=== PATIENT | female | born 1975 | race Hispanic/Latino ===

== ENCOUNTER 2017-09-09 16:49 | Emergency (ER) | payer MEDICARE, MEDICAID ==
[2017-09-09] MEDS ORDERED: Lidocaine 2% PF 10 ML AMP (For Epidural Use) ONE (17:01)
[2017-09-09] MEDS ORDERED: Lidocaine 1% w/Epinephrine 1:200K 30 ML VIAL ONE (18:04)
== END 2017-09-09 18:16 | disposition home or self-care (01) ==
LOC: ERS 16:49
DX: S61.203A Unspecified open wound of left middle finger without damage to nail, initial encounter (principal); I12.0 Hypertensive chronic kidney disease with stage 5 chronic kidney disease or end stage renal disease; N18.6 End stage renal disease; F32.9 Major depressive disorder, single episode, unspecified; F17.210 Nicotine dependence, cigarettes, uncomplicated; Z79.82 Long term (current) use of aspirin; Z79.52 Long term (current) use of systemic steroids; Z79.899 Other long term (current) drug therapy; W26.0XXA Contact with knife, initial encounter
CPT/HCPCS: 64450; J2001

== ENCOUNTER 2017-11-18 15:49 | Emergency (ER) | payer MEDICARE, MEDICAID ==
[2017-11-18 16:46] LABS: #Eosinphils 0.1 thou/uL (0.0-0.7); #Monocytes 0.4 thou/uL (0.11-0.59); #Neutrophils 5.3 thou/uL (1.40-6.50); %Basophils 0.2 % (0.0-1.0); %Lymphocytes 14.7 % (21.0-51.0); %Monocytes 5.9 % (0.0-10.0); Hematocrit 40.2 % (36.0-47.0); Mean Platelet Volume 7.3 fL (7.4-10.4); Red Blood Cell (RBC) Count 4.34 mill/uL (4.20-5.40); White Blood Cell (WBC) Count 6.8 thou/uL (4.8-10.8)
[2017-11-18 17:10] LABS: ALT (SGPT) 28 U/L (8-55); AST (SGOT) 26 U/L (5-34); Alkaline Phosphatase 161 U/L (40-150); Anion Gap 14 mmol/L (10-20); BUN (Urea Nitrogen) 15 mg/dL (7.0-18.7); Bilirubin, Total 0.2 mg/dL (0.2-1.2); Calc. Creatinine Clearance 0 mL/min (70-130); Calcium 9.9 mg/dL (7.8-10.44); Carbon Dioxide 23 mmol/L (22-29); Chloride 103 mmol/L (98-107); Estimated GFR-MDRD 65; Globulin 3.8 g/dL (2.4-3.5); Protein, Total 7.9 g/dL (6.0-8.3)
[2017-11-18] MEDS ORDERED: Ketorolac Tromethamine 30 MG/ML VIAL ONE (18:31)
[2017-11-18] MEDS ORDERED: Metoclopramide HCl 10 MG/2 ML VIAL ONE (18:31)
[2017-11-18] MEDS ORDERED: diphenhydrAMINE 50 MG/ML VIAL ONE (18:31)
[2017-11-18] MEDS ORDERED: Dexamethasone 4 mg/ml Vial ONE (19:04)
[2017-11-18 19:40] LABS: Bilirubin Negative (Negative); Blood, Urine Large (Negative); Glucose, Urine (Dipstick) Negative (Negative); Ketone, Urine Negative (Negative); Nitrite Negative (Negative); Protein, Urine (Dipstick) Negative (Neg-Trace); Urobilinogen 0.2 mg/dL (0.2-1.0)
[2017-11-18 19:43] LABS: Bacteria/HPF None Seen HPF (None Seen); Hyaline Casts/LPF 0-3 HYALINE CAST LPF (0-3 Hyaline); Squamous Epithelial 0-3 HPF (0-3); WBC/HPF None Seen HPF (0-3)
[2017-11-18 19:58] LABS: Yeast-All Forms None Seen HPF (None Seen)
--- NOTE | 2017-11-18 20:05 | RAD ---
PORTABLE CHEST 11/18/17 PROVIDED CLINICAL HISTORY: Cough. FINDINGS: Comparison 07/27/17. The cardiac silhouette appears enlarged which may be at least partially on the basis of portable tech nique. No focal consolidation, pleural fluid or pneumothorax apparent. IMPRESSION: No evidence for an acute cardiopulmonary process. POS: [facility]
== END 2017-11-18 21:28 | disposition home or self-care (01) ==
LOC: ERS 15:49
DX: G43.909 Migraine, unspecified, not intractable, without status migrainosus (principal); J11.1 Influenza due to unidentified influenza virus with other respiratory manifestations; I12.0 Hypertensive chronic kidney disease with stage 5 chronic kidney disease or end stage renal disease; N18.6 End stage renal disease; F32.9 Major depressive disorder, single episode, unspecified; F17.210 Nicotine dependence, cigarettes, uncomplicated; Z94.0 Kidney transplant status; Z79.82 Long term (current) use of aspirin; Z79.52 Long term (current) use of systemic steroids; Z79.899 Other long term (current) drug therapy
CPT/HCPCS: 36415; 71010; 80053; 81003; 81015; 85025; 87040; 87077; 87086; 96361; 96374; 96375; 99406; J1100; J1200; J1885; J2765

== ENCOUNTER 2018-03-15 14:44 | Outpatient (CLI) | payer MEDICARE, MEDICAID | END 2018-03-15 14:45 | disposition home or self-care (01) | LOC: BICMAMMO 14:44 | PROVIDERS: ATTEND Internal Medicine Nephrology | DX: M81.0 Age-related osteoporosis without current pathological fracture (principal); M85.859 Other specified disorders of bone density and structure, unspecified thigh | CPT/HCPCS: 77080 ==

== ENCOUNTER 2018-04-09 14:44 | Emergency (ER) | payer MEDICARE, MEDICAID ==
--- NOTE | 2018-04-09 16:27 | RAD ---
PA AND LATERAL CHEST X-RAY: 04/09/18 HISTORY: Chest pain. COMPARISON: 11/18/17. FINDINGS: The cardiac silhouette and pulmonary vasculature are within normal limits. Lungs remain clear. There has been no interval change when compared to the prior exam. IMPRESSION: No acute cardiopulmonary process. POS: [facility]
== END 2018-04-09 17:00 | disposition home or self-care (01) ==
LOC: ERS 14:44
DX: M54.12 Radiculopathy, cervical region (principal); I11.0 Hypertensive heart disease with heart failure; N18.6 End stage renal disease; F17.210 Nicotine dependence, cigarettes, uncomplicated; F32.9 Major depressive disorder, single episode, unspecified
CPT/HCPCS: 71046

== ENCOUNTER 2018-05-09 03:29 | Emergency (ER) | payer MEDICAID, MEDICARE ==
[2018-05-09] MEDS ORDERED: Ondansetron ODT 4 MG TAB ONE (03:42)
[2018-05-09] MEDS ORDERED: Metoclopramide HCl 10 MG/2 ML VIAL ONE (04:29)
[2018-05-09] MEDS ORDERED: diphenhydrAMINE 50 MG/ML VIAL ONE (04:29)
[2018-05-09 04:49] LABS: Hemoglobin 13.2 g/dL (12.0-16.0); Mean Corpuscular HGB CONC 33.2 g/dL (32.0-36.0); Mean Corpuscular Hemoglobin 30.2 pg (27.0-31.0); Mean Corpuscular Volume 90.9 fl (81.0-99.0); Mean Platelet Volume 7.1 fL (7.4-10.4); Platelet Count 322 thou/uL (130-400); RBC Distribution Width 12.8 % (11.5-14.5); Red Blood Cell (RBC) Count 4.37 mill/uL (4.20-5.40); White Blood Cell (WBC) Count 11.3 thou/uL (4.8-10.8)
[2018-05-09 05:12] LABS: Band 1 % (5-11); Eosinophils 1 % (0-10); Lymphocytes 7 % (21-51); MDiff Complete? YES; Monocytes 4 % (0-10); Neutrophil 87 % (42-75)
[2018-05-09 05:14] LABS: ALT (SGPT) 14 U/L (8-55); AST (SGOT) 12 U/L (5-34); Albumin 3.9 g/dL (3.5-5.0); Alkaline Phosphatase 149 U/L (40-150); Anion Gap 13 mmol/L (10-20); BUN (Urea Nitrogen) 18 mg/dL (7.0-18.7); Bilirubin, Total 0.4 mg/dL (0.2-1.2); Calc. Creatinine Clearance 0 mL/min (70-130); Calcium 8.7 mg/dL (7.8-10.44); Carbon Dioxide 23 mmol/L (22-29); Chloride 103 mmol/L (98-107); Estimated GFR-MDRD 75; Globulin 3.2 g/dL (2.4-3.5); Glucose 152 mg/dL (70-105); Potassium 3.8 mmol/L (3.5-5.1); Protein, Total 7.1 g/dL (6.0-8.3); Sodium 135 mmol/L (136-145)
--- NOTE | 2018-05-09 08:34 | CT ---
PRELIMINARY REPORT/[facility]/EMERGENCY AFTER HOURS PROCEDURE: EXAM: CT Head Without Intravenous Contrast EXAM DATE/TIME: 05/09/2018 4:33 AM CLINICAL HISTORY: 42 years old, female; Pain; Headache; Patient HX: PT had stroke in february, possible seizure like activ ity tonight. PT was sitting and slumped down on the couch. TECHNIQUE: Axial computed tomography images of the head/brain without intravenous contrast. COMPARISON: No relevant prior studies available. FINDINGS: Brain: Normal. No hemorrhage. No significant white matter disease. No edema. Ventricles: Normal. No ventriculomegaly. Bones/joints: Normal. No acute fracture. Sinuses: Normal as visualized. No acute sinusitis. Mastoid air cells: Normal as visualized. No mastoid effusion. Soft tissues: Normal. IMPRESSION: No acute findings. Thank you for allowing us to participate in the care of your patient. Dictated and Authenticated by: Sheldon Crabtree MD 05/09/2018 4:53 AM Central Time ([place] & [place]) FINAL REPORT CT HEAD NONCONTRAST: DATE: 05/09/18. TIME: Performed on an emergency basis at 0434 hours. HISTORY: Seizure. FINDINGS: Findings agree with the preliminary report by Dr. Crabtree from [facility]. No acute intracran ial abnormalities are demonstrated on noncontrast CT head. POS: [facility]
== END 2018-05-09 06:11 | disposition home or self-care (01) ==
LOC: ERS 03:29
DX: G43.909 Migraine, unspecified, not intractable, without status migrainosus (principal); I12.0 Hypertensive chronic kidney disease with stage 5 chronic kidney disease or end stage renal disease; N18.6 End stage renal disease; F32.9 Major depressive disorder, single episode, unspecified; Z87.891 Personal history of nicotine dependence; F17.210 Nicotine dependence, cigarettes, uncomplicated
CPT/HCPCS: 36415; 70450; 80053; 85025; 85652; 96365; 96375; J1200; J2765; Q0162

== ENCOUNTER 2018-05-11 20:26 | Emergency (ER) | payer MEDICAID, MEDICARE ==
[2018-05-11 20:58] LABS: Bilirubin Negative (Negative); Blood, Urine Small (Negative); Clarity CLOUDY (Clear); Glucose, Urine (Dipstick) Negative (Negative); Leukocyte Small (Negative); Nitrite Negative (Negative); Protein, Urine (Dipstick) Negative (Neg-Trace); Specific Gravity, Urine 1.013 (1.002-1.036); Urobilinogen 0.2 mg/dL (0.2-1.0)
[2018-05-11 21:01] LABS: Bacteria/HPF 1+ HPF (None Seen); Hyaline Casts/LPF 0-3 HYALINE CAST LPF (0-3 Hyaline); Pathc Cast-AUWi Flag 0.43 (0-2.49); RBC/HPF 0-3 HPF (0-3); WBC/HPF 21-50 HPF (0-3)
[2018-05-11] MEDS ORDERED: Dicyclomine 20 MG TAB ONE (21:15)
[2018-05-11 21:22] LABS: #Eosinphils 0.1 thou/uL (0.0-0.7); #Lymphocytes 1.9 thou/uL (1.20-3.40); #Monocytes 0.4 thou/uL (0.11-0.59); #Neutrophils 4.3 thou/uL (1.40-6.50); %Basophils 0.1 % (0.0-1.0); %Eosinophils 1.2 % (0.0-10.0); %Lymphocytes 28.3 % (21.0-51.0); %Monocytes 6.2 % (0.0-10.0); %Neutrophils 64.2 % (42.0-75.0); Hemoglobin 11.8 g/dL (12.0-16.0); Mean Corpuscular HGB CONC 34.6 g/dL (32.0-36.0); Mean Corpuscular Volume 89.7 fl (81.0-99.0); Mean Platelet Volume 7.2 fL (7.4-10.4); Platelet Count 295 thou/uL (130-400); RBC Distribution Width 12.5 % (11.5-14.5); White Blood Cell (WBC) Count 6.6 thou/uL (4.8-10.8)
[2018-05-11] MEDS ORDERED: Nitrofurantoin Macrocrystal 50 MG CAP PO SCH (21:30)
[2018-05-11 21:37] LABS: ALT (SGPT) 17 U/L (8-55); AST (SGOT) 14 U/L (5-34); Albumin 3.7 g/dL (3.5-5.0); Alkaline Phosphatase 189 U/L (40-150); Anion Gap 14 mmol/L (10-20); BUN (Urea Nitrogen) 17 mg/dL (7.0-18.7); Bilirubin, Total 0.2 mg/dL (0.2-1.2); Calc. Creatinine Clearance 0 mL/min (70-130); Calcium 9.5 mg/dL (7.8-10.44); Carbon Dioxide 22 mmol/L (22-29); Chloride 104 mmol/L (98-107); Estimated GFR-MDRD 74; Glucose 203 mg/dL (70-105); Lipase 18 U/L (8-78); Potassium 4.1 mmol/L (3.5-5.1); Protein, Total 6.7 g/dL (6.0-8.3); Sodium 136 mmol/L (136-145)
[2018-05-12] MEDS ORDERED: Ciprofloxacin 500 MG TAB ONE (01:20)
--- NOTE | 2018-05-12 09:15 | CT ---
PRELIMINARY REPORT/[facility]/EMERGENTY AFTER-HOURS PROCEDURE CT Abdomen and Pelvis Without Intravenous Contrast CLINICAL HISTORY: 42 years old, female; Pain; Abdominal pain; Generalized; Patient HX: F42 presents to ed C/O rlq abd p ain that began today after 2 days of n/v/d. Pt reports kidney transplant in 2010 for unknown heredity issue. Pt denies diarrhea. Pt reports constipation. Pt reports having last bm in the ed during visit . Pt still has her appendix. During last ed visit pt was given zofran for n/v. Pt denies n/v. ; Addit ional info: Oral contrast only TECHNIQUE: Axial computed tomography images of the abdomen and pelvis without intravenous contrast. Coronal refo rmatted images were created and reviewed. COMPARISON: No relevant prior studies available. FINDINGS: Lung bases: Minimal right middle lobe and lingular atelectasis and/or scarring. ABDOMEN: Liver: Hepatic steatosis. Gallbladder and bile ducts: Normal. Pancreas: Normal. Spleen: Normal. Adrenals: Normal. Kidneys and ureters: Severe bilateral [place] renal atrophy. Right lower quadrant/iliac fossa renal al lograft, without evidence of acute complications. Stomach and bowel: Normal. PELVIS: Appendix: Appendix is normal. Bladder: Normal. Reproductive: 2.9 cm cystic structure within the right adnexa, likely right ovarian cyst. ABDOMEN and PELVIS: Intraperitoneal space: Normal. No free air. No significant fluid collection. Bones/joints: No acute fracture. No dislocation. Soft tissues: Normal. Vasculature: Atherosclerotic disease of the abdominal aorta and iliac arteries. Phleboliths within th e pelvis. Lymph nodes: Normal. Tubes, lines and devices: Intrauterine device in place. IMPRESSION: 1. No acute findings. 2. Non-acute findings are described above. Thank you for allowing us to participate in the care of your patient. Dictated and Authenticated by: Alessandro Hollis MD 05/12/2018 1:11 AM Central Time ([place] & [place]) FINAL REPORT EMERGENT AFTER HOURS CT OF ABDOMEN AND PELVIS PERFORMED WIHTOUT CONTRAST ENHANCEMENT: HISTORY: Generalized abdominal pain. Right lower quadrant pain that began today. History of a kidney transpl ant. COMPARISON: 07/27/17 CT examination. FINDINGS: The lung bases show some minimal scarring in the lingula and middle lobe. Fatty changes of the liver are noted, liver measures approximately 16 cm in length. The spleen is wi thin normal limits. Pancreas and gallbladder regions are unremarkable. Right and left adrenal glands are normal in appearance. Both kidneys were severely atrophic. There is no significant periaortic adenopathy. There are small nonspecific mesenteric lymph nodes, this is a fairly similar appearance to what was seen on the previous exam. CT OF PELVIS PERFORMED WITHOUT CONTRAST ENHANCEMENT: The appendix is normal. A right-sided renal transplant is present. No signs of obstruction. IUD is in place within the uterus. There is a right ovarian cyst present. It measures slightly greater th an 2.2 x 2.9 cm. IMPRESSION: 1. No acute abnormalities of the abdomen or pelvis. 2. Normal appendix. 3. Approximately 2.9 cm right ovarian cyst. 4. Fatty changes of the liver. 5. Right renal transplant. 6. This report is in agreement with the temporary report issued by [facility]. POS: [facility]
== END 2018-05-12 01:36 | disposition home or self-care (01) ==
LOC: ERS 20:26
DX: N39.0 Urinary tract infection, site not specified (principal); I12.0 Hypertensive chronic kidney disease with stage 5 chronic kidney disease or end stage renal disease; N18.6 End stage renal disease; F32.9 Major depressive disorder, single episode, unspecified; F17.210 Nicotine dependence, cigarettes, uncomplicated
CPT/HCPCS: 36415; 74176; 80053; 81003; 81015; 83690; 85025; 87086; 99406

== ENCOUNTER 2018-08-17 04:21 | Emergency (ER) | payer MEDICARE, MEDICAID ==
[2018-08-17] MEDS ORDERED: Metoclopramide HCl 10 MG/2 ML VIAL ONE (04:54)
[2018-08-17] MEDS ORDERED: Ketorolac Tromethamine 30 MG/ML VIAL ONE (04:54)
[2018-08-17] MEDS ORDERED: Dexamethasone 10 MG/ML VIAL ONE (04:54)
[2018-08-17 05:19] LABS: #Eosinphils 0.1 thou/uL (0.0-0.7); #Lymphocytes 1.6 thou/uL (1.20-3.40); #Monocytes 0.7 thou/uL (0.11-0.59); #Neutrophils 10.4 thou/uL (1.40-6.50); %Basophils 0.1 % (0.0-1.0); %Lymphocytes 12.3 % (21.0-51.0); %Monocytes 5.6 % (0.0-10.0); %Neutrophils 81.1 % (42.0-75.0); Hemoglobin 12.5 g/dL (12.0-16.0); Mean Corpuscular HGB CONC 33.9 g/dL (32.0-36.0); Mean Corpuscular Hemoglobin 31.3 pg (27.0-31.0); Mean Corpuscular Volume 92.3 fL (78.0-98.0); Mean Platelet Volume 7.5 fL (7.4-10.4); Platelet Count 336 thou/uL (130-400); RBC Distribution Width 12.9 % (11.5-14.5); Red Blood Cell (RBC) Count 3.99 mill/uL (4.20-5.40); White Blood Cell (WBC) Count 12.8 thou/uL (4.8-10.8)
[2018-08-17 05:42] LABS: Anion Gap 13 mmol/L (10-20); BUN (Urea Nitrogen) 12 mg/dL (7.0-18.7); Calc. Creatinine Clearance 0 mL/min (70-130); Calcium 9.5 mg/dL (7.8-10.44); Carbon Dioxide 23 mmol/L (22-29); Chloride 101 mmol/L (98-107); Estimated GFR-MDRD 75; Glucose 138 mg/dL (70-105); Potassium 3.4 mmol/L (3.5-5.1); Sodium 134 mmol/L (136-145)
== END 2018-08-17 06:25 | disposition home or self-care (01) ==
LOC: ERS 04:21
DX: R51 Headache (principal); Z71.6 Tobacco abuse counseling; I12.0 Hypertensive chronic kidney disease with stage 5 chronic kidney disease or end stage renal disease; N18.6 End stage renal disease; F32.9 Major depressive disorder, single episode, unspecified; F17.210 Nicotine dependence, cigarettes, uncomplicated
CPT/HCPCS: 80048; 85025; 96374; 99406; J1100; J1885; J2765

== ENCOUNTER 2018-08-22 18:51 | Emergency (ER) | payer MEDICARE, MEDICAID ==
[2018-08-22] MEDS ORDERED: HYDROcodone/Acetaminophen 5/325 mg Tablet ONE (19:31)
[2018-08-22] MEDS ORDERED: HYDROcodone/Acetaminophen 10/325 mg Tablet ONE (19:32)
--- NOTE | 2018-08-22 19:55 | RAD ---
RIGHT SHOULDER THREE VIEWS: HISTORY: Trauma to shoulder. FINDINGS: There are no signs of fracture or dislocation. IMPRESSION: Negative right shoulder. POS: [facility]
== END 2018-08-22 20:24 | disposition home or self-care (01) ==
LOC: ERS 18:51
DX: S46.911A Strain of unspecified muscle, fascia and tendon at shoulder and upper arm level, right arm, initial encounter (principal); S40.212A Abrasion of left shoulder, initial encounter; I12.0 Hypertensive chronic kidney disease with stage 5 chronic kidney disease or end stage renal disease; N18.6 End stage renal disease; F32.9 Major depressive disorder, single episode, unspecified; F17.210 Nicotine dependence, cigarettes, uncomplicated; Z79.82 Long term (current) use of aspirin; Z79.899 Other long term (current) drug therapy; Y04.0XXA Assault by unarmed brawl or fight, initial encounter

== ENCOUNTER 2018-08-31 22:47 | Observation (INO) | payer MEDICARE, MEDICAID ==
[2018-08-31 23:12] LABS: #Basophils 0.1 thou/uL (0.0-0.2); #Eosinphils 0.3 thou/uL (0.0-0.7); #Lymphocytes 2.9 thou/uL (1.20-3.40); #Monocytes 0.5 thou/uL (0.11-0.59); #Neutrophils 5.1 thou/uL (1.40-6.50); %Basophils 0.6 % (0.0-1.0); %Eosinophils 3.2 % (0.0-10.0); %Lymphocytes 32.8 % (21.0-51.0); %Monocytes 5.8 % (0.0-10.0); %Neutrophils 57.7 % (42.0-75.0); Hemoglobin 12.8 g/dL (12.0-16.0); Mean Corpuscular HGB CONC 33.5 g/dL (32.0-36.0); Mean Corpuscular Hemoglobin 30.7 pg (27.0-31.0); Mean Corpuscular Volume 91.6 fL (78.0-98.0); Mean Platelet Volume 7.2 fL (7.4-10.4); Platelet Count 400 thou/uL (130-400); RBC Distribution Width 12.9 % (11.5-14.5); Red Blood Cell (RBC) Count 4.18 mill/uL (4.20-5.40); White Blood Cell (WBC) Count 8.8 thou/uL (4.8-10.8)
--- NOTE | 2018-08-31 23:31 | RAD ---
FRONTAL VIEW CHEST: 08/31/18 INDICATION: Chest pain. COMPARISON: 11/18/17. There is no lobar consolidation, effusion or pneumothorax. The cardiac silhouette is prominent, stabl e. No significant interval change. No significant interval change. IMPRESSION: Stable chest. POS: [facility]
[2018-08-31 23:32] LABS: ALT (SGPT) 30 U/L (8-55); AST (SGOT) 24 U/L (5-34); Albumin 4.2 g/dL (3.5-5.0); Alkaline Phosphatase 189 U/L (40-150); Anion Gap 13 mmol/L (10-20); BUN (Urea Nitrogen) 16 mg/dL (7.0-18.7); Bilirubin, Total 0.3 mg/dL (0.2-1.2); CK (CPK) 38 U/L (29-168); Calc. Creatinine Clearance 0 mL/min (70-130); Calcium 10.1 mg/dL (7.8-10.44); Carbon Dioxide 25 mmol/L (22-29); Chloride 102 mmol/L (98-107); Estimated GFR-MDRD 59; Globulin 3.7 g/dL (2.4-3.5); Glucose 181 mg/dL (70-105); Potassium 3.6 mmol/L (3.5-5.1); Protein, Total 7.9 g/dL (6.0-8.3); Sodium 136 mmol/L (136-145)
[2018-08-31 23:34] LABS: CKMB 0.7 ng/mL (0-6.6); Troponin I Less than 0.010 ng/mL (< 0.028)
[2018-09-01] MEDS ORDERED: Acetaminophen 500 MG TAB ONE (01:17)
[2018-09-01 02:57] LABS: Troponin I Less than 0.010 ng/mL (< 0.028)
[2018-09-01 03:14] VITALS: BMI 32.3
[2018-09-01 05:39] LABS: Troponin I Less than 0.010 ng/mL (< 0.028)
[2018-09-01] MEDS: Mycophenolate ER 180 MG TAB PO SCH ×2 (08:35→18:55)
[2018-09-01] MEDS ORDERED: Tacrolimus 1 MG CAP PO SCH (09:00)
[2018-09-01] MEDS ORDERED: Simvastatin 5 MG TAB PO SCH (09:00)
[2018-09-01] MEDS ORDERED: Aspirin 325 MG TAB PO SCH (09:00)
[2018-09-01] MEDS ORDERED: DULoxetine 60 MG CAP PO SCH (09:00)
[2018-09-01] MEDS ORDERED: Carvedilol 25 MG TAB PO SCH (09:00)
[2018-09-01 12:23] VITALS: TEMP 98.1
--- NOTE | 2018-09-01 14:41 | NM ---
NUCLEAR MEDICINE CARDIAC STRESS TEST WITH EJECTION FRACTION: History: Chest pain, hypertension, smoker. Comparison: None. Technique: Stress and rest performed after the intravenous administration of technetium 99 M Sestamib i. FINDINGS: There is normal left ventricular uptake of radiotracer. No evidence for scar or ischemia. Wall motion is normal. The calculated ejection fraction is 58%. IMPRESSION: Normal Nuclear Medicine cardiac stress test and ejection fraction. POS: [facility]
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
[2018-09-01 15:44] VITALS: BP 123/59
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
--- NOTE | 2018-09-01 23:40 | DIS ---
DATE OF ADMISSION: 09/01/2018 DATE OF DISCHARGE: 09/01/2018 DISCHARGE DIAGNOSES: 1. Chest pain. 2. History of renal transplant. 3. Hypertension. HOSPITAL COURSE: The patient is a very pleasant 43-year-old female, [facility]. EKG did not show any acute abnormalities. Troponins x3 were negative. The patient underwent a stress test, which was negative. Given the fact that the patient continued to h ave heaviness on her chest, I did consult Cardiology. Motor Vehicle Field Representative said that she will need a cardiac catheterization; however, given her history of transplant, that would need to be followed up as an o utpatient. The patient's D-dimer was negative. She will be discharged home. She will follow up wit h her primary care doctor. The patient was seen earlier today. Please refer to H&P for physical exa mination. Her home medications were as of the following: She will continue her sertraline 100 mg daily, carved ilol 25 b.i.d., amlodipine 10 mg daily, tacrolimus 1 mg b.i.d., pravastatin 20 mg daily, Myfortic 360 b.i.d., and Cymbalta 20 mg daily.
--- NOTE | 2018-09-04 17:58 | EKG ---
Test Reason : Blood Pressure : / mmHG Vent. Rate : 104 BPM Atrial Rate : 104 BPM P-R Int : 132 ms QRS Dur : 082 ms QT Int : 366 ms P-R-T Axes : 062 -27 042 degrees QTc Int : 481 ms Sinus tachycardia Possible Left atrial enlargement Borderline ECG Confirmed by ADINA PAINTING ([id number]), medical transcription editor MARSHA VALDES ([id number]) on 09/04/2018 5:58:13 PM Referred By: Confirmed By:ADINA PAINTING
== END 2018-09-01 17:30 | disposition home or self-care (01) ==
LOC: ERS 22:47 → 2SW 09-01 00:51
PROVIDERS: ADMIT Internal Medicine; ATTEND Internal Medicine
DX: R07.89 Other chest pain (principal); I10 Essential (primary) hypertension; E78.5 Hyperlipidemia, unspecified; F17.210 Nicotine dependence, cigarettes, uncomplicated; Z94.0 Kidney transplant status; Z79.899 Other long term (current) drug therapy
CPT/HCPCS: 71045; 78452; 80053 ×2; 82550; 82553; 83690; 84484 ×3; 85025 ×2; 85379; 93005; 93017; 99285; A9500; G0378; 36415; J7507

== ENCOUNTER 2018-09-01 17:41 | Emergency (ER) | payer MEDICARE, MEDICAID ==
[2018-09-01 18:45] LABS: #Basophils 0.1 thou/uL (0.0-0.2); #Eosinphils 0.2 thou/uL (0.0-0.7); #Lymphocytes 2.2 thou/uL (1.20-3.40); #Monocytes 0.6 thou/uL (0.11-0.59); #Neutrophils 7.4 thou/uL (1.40-6.50); %Basophils 0.6 % (0.0-1.0); %Lymphocytes 20.8 % (21.0-51.0); %Monocytes 5.8 % (0.0-10.0); %Neutrophils 70.7 % (42.0-75.0); Hemoglobin 13.4 g/dL (12.0-16.0); Mean Corpuscular HGB CONC 32.9 g/dL (32.0-36.0); Mean Corpuscular Hemoglobin 30.7 pg (27.0-31.0); Mean Corpuscular Volume 93.3 fL (78.0-98.0); Mean Platelet Volume 7.6 fL (7.4-10.4); Platelet Count 399 thou/uL (130-400); Red Blood Cell (RBC) Count 4.37 mill/uL (4.20-5.40); White Blood Cell (WBC) Count 10.5 thou/uL (4.8-10.8)
[2018-09-01 19:03] LABS: ALT (SGPT) 27 U/L (8-55); AST (SGOT) 25 U/L (5-34); Albumin 4.1 g/dL (3.5-5.0); Alkaline Phosphatase 158 U/L (40-150); Anion Gap 13 mmol/L (10-20); BUN (Urea Nitrogen) 20 mg/dL (7.0-18.7); Bilirubin, Total 0.3 mg/dL (0.2-1.2); Calc. Creatinine Clearance 0 mL/min (70-130); Calcium 10.3 mg/dL (7.8-10.44); Carbon Dioxide 24 mmol/L (22-29); Chloride 103 mmol/L (98-107); Estimated GFR-MDRD 42; Globulin 3.7 g/dL (2.4-3.5); Glucose 139 mg/dL (70-105); Lipase 18 U/L (8-78); Potassium 3.7 mmol/L (3.5-5.1); Protein, Total 7.8 g/dL (6.0-8.3); Sodium 136 mmol/L (136-145)
== END 2018-09-01 20:02 | disposition left against medical advice (07) ==
LOC: ERS 17:41
DX: R19.7 Diarrhea, unspecified (principal); I12.0 Hypertensive chronic kidney disease with stage 5 chronic kidney disease or end stage renal disease; N18.6 End stage renal disease; F32.9 Major depressive disorder, single episode, unspecified; F17.210 Nicotine dependence, cigarettes, uncomplicated
CPT/HCPCS: 36415; 80053; 83690; 85025

== ENCOUNTER 2018-11-23 13:05 | Emergency (ER) | payer MEDICARE, MEDICAID ==
[2018-11-23] MEDS ORDERED: HYDROcodone/Acetaminophen 10/325 mg Tablet ONE (13:51)
--- NOTE | 2018-11-23 14:27 | RAD ---
LEFT HAND 3 VIEWS: Date: 11/23/18 HISTORY: Injury, left hand pain and swelling. FINDINGS/IMPRESSION: No acute fracture or dislocation is identified. POS: [facility]
== END 2018-11-23 15:05 | disposition home or self-care (01) ==
LOC: ERS 13:05
DX: S60.222A Contusion of left hand, initial encounter (principal); I12.0 Hypertensive chronic kidney disease with stage 5 chronic kidney disease or end stage renal disease; N18.6 End stage renal disease; F32.9 Major depressive disorder, single episode, unspecified; F17.210 Nicotine dependence, cigarettes, uncomplicated; Z71.6 Tobacco abuse counseling; W50.0XXA Accidental hit or strike by another person, initial encounter
CPT/HCPCS: 99406

== ENCOUNTER 2019-02-25 11:20 | Outpatient (CLI) | payer OTHER ==
--- NOTE | 2019-02-25 11:52 | RAD ---
F2 views left knee: 02/25/2019 HISTORY: Intermittent pain FINDINGS: Mild medial compartment narrowing. No knee joint effusion, displaced fracture, or evidence of dislocation. IMPRESSION: No acute findings.
--- NOTE | 2019-02-25 12:11 | RAD ---
LEFT HAND 3 VIEWS: Date: 02/25/19 HISTORY: Left hand pain and finger cramps. FINDINGS/IMPRESSION: No fracture, dislocation, or bony destruction is seen. POS: [facility]
--- NOTE | 2019-02-25 12:12 | RAD ---
RIGHT HAND 3 VIEWS: Date: 02/25/19 HISTORY: Right hand pain and finger cramps. FINDINGS/IMPRESSION: No fracture, dislocation, or bony destruction is seen. POS: [facility]
== END 2019-02-25 11:21 | disposition home or self-care (01) ==
LOC: BICRAD 11:20
PROVIDERS: ATTEND Psychiatry & Neurology Psychiatry
DX: Z02.71 Encounter for disability determination (principal)

== ENCOUNTER 2019-04-09 19:01 | Emergency (ER) | payer MEDICARE, MEDICAID ==
--- NOTE | 2019-04-09 20:03 | RAD ---
Exam:Left foot 3 views HISTORY: Pain. Patient dropped wood on foot. COMPARISON: 06/10/2013 FINDINGS: Uncomplicated internal fixation hardware at the level of the ankle Lisfranc alignment is maintained. Joint spaces are preserved. No fracture. IMPRESSION: 1. No posttraumatic change 2. Stable internal fixation hardware.
[2019-04-09] MEDS ORDERED: Bacitracin Zinc 1 Packet ONE (20:54)
== END 2019-04-09 21:11 | disposition home or self-care (01) ==
LOC: ERS 19:01
DX: S90.212A Contusion of left great toe with damage to nail, initial encounter (principal); I12.0 Hypertensive chronic kidney disease with stage 5 chronic kidney disease or end stage renal disease; N18.6 End stage renal disease; F17.210 Nicotine dependence, cigarettes, uncomplicated; Z79.899 Other long term (current) drug therapy; W04.XXXA Fall while being carried or supported by other persons, initial encounter
CPT/HCPCS: 99406

== ENCOUNTER 2019-09-06 20:01 | Emergency (ER) | payer MEDICARE, MEDICAID ==
--- NOTE | 2019-09-06 20:39 | RAD ---
XR Ankle Lt 3 View STANDARD History: Fall. Pain. Comparison: Radiograph 2006 Findings: Exam is limited due to only 2 views. Satisfactory appearance of the lateral plate-screw fix ation as well as the retrograde medial malleolar screws. Nondisplaced fracture through the distal fibular tip. Impression: Limited exam due to only 2 views sent for review. Nondisplaced distal fibular tip fractur e below the syndesmosis.
--- NOTE | 2019-09-06 20:40 | RAD ---
XR Wrist 3 Rt View STANDARD History: Fall. Pain. Comparison: None. Findings: No acute fracture or malalignment. Mild engorgement of the superficial draining veins. Impression: No acute fracture or malalignment.
[2019-09-06 20:55] LABS: #Basophils 0.1 thou/uL (0.0-0.2); #Eosinphils 0.4 thou/uL (0.0-0.7); #Lymphocytes 3.1 thou/uL (1.20-3.40); #Monocytes 0.7 thou/uL (0.11-0.59); #Neutrophils 7.6 thou/uL (1.40-6.50); %Basophils 0.5 % (0.0-1.0); %Eosinophils 3.7 % (0.0-10.0); %Lymphocytes 25.9 % (21.0-51.0); Hemoglobin 12.7 g/dL (12.0-16.0); Mean Corpuscular HGB CONC 34.3 g/dL (32.0-36.0); Mean Corpuscular Hemoglobin 31.3 pg (27.0-31.0); Mean Corpuscular Volume 91.5 fL (78.0-98.0); Mean Platelet Volume 7.7 fL (7.4-10.4); Platelet Count 349 thou/uL (130-400); RBC Distribution Width 12.7 % (11.5-14.5); Red Blood Cell (RBC) Count 4.05 mill/uL (4.20-5.40); White Blood Cell (WBC) Count 11.8 thou/uL (4.8-10.8)
[2019-09-06 21:01] LABS: Bilirubin Negative (Negative); Blood, Urine Negative (Negative); Clarity Clear (Clear); Glucose, Urine (Dipstick) 100 mg/dL (Negative); Leukocyte 25 Leu/uL (Negative); Nitrite Negative (Negative); Protein, Urine (Dipstick) Negative (Neg-Trace); RBC/HPF 0-3 HPF (0-3); Squamous Epithelial 0-3 HPF (0-3); Urobilinogen Normal mg/dL (Less than 2); WBC/HPF 0-3 HPF (0-3)
[2019-09-06 21:09] LABS: Bacteria/HPF 2+ HPF (None Seen)
[2019-09-06 21:18] LABS: ALT (SGPT) 19 U/L (8-55); AST (SGOT) 14 U/L (5-34); Alkaline Phosphatase 205 U/L (40-110); Anion Gap 12 mmol/L (10-20); BUN (Urea Nitrogen) 15 mg/dL (7.0-18.7); Bilirubin, Total 0.2 mg/dL (0.2-1.2); Calc. Creatinine Clearance 0 mL/min (70-130); Calcium 9.2 mg/dL (7.8-10.44); Carbon Dioxide 25 mmol/L (22-29); Chloride 104 mmol/L (98-107); Estimated GFR-MDRD 58; Globulin 3.4 g/dL (2.4-3.5); Glucose 209 mg/dL (70-105); Potassium 3.6 mmol/L (3.5-5.1); Protein, Total 7.4 g/dL (6.0-8.3); Sodium 137 mmol/L (136-145)
[2019-09-06] MEDS ORDERED: Morphine 4 MG/ML VIAL ONE (21:46)
== END 2019-09-06 22:51 | disposition home or self-care (01) ==
LOC: ERS 20:01
DX: S82.832A Other fracture of upper and lower end of left fibula, initial encounter for closed fracture (principal); I12.0 Hypertensive chronic kidney disease with stage 5 chronic kidney disease or end stage renal disease; N18.6 End stage renal disease; F32.9 Major depressive disorder, single episode, unspecified; F17.210 Nicotine dependence, cigarettes, uncomplicated; Z79.899 Other long term (current) drug therapy; Z79.82 Long term (current) use of aspirin; W18.30XA Fall on same level, unspecified, initial encounter
CPT/HCPCS: 29515; 36415; 80053; 81003; 81015; 85025; 96372; J2270

== ENCOUNTER 2019-12-01 11:28 | Emergency (ER) | payer MEDICARE, MEDICAID ==
--- NOTE | 2019-12-01 11:52 | RAD ---
XR Ankle Rt 3 View STANDARD INDICATION: History of fall with right ankle pain COMPARISON: None. FINDINGS: Bones: There is moderate enthesopathic change off the plantar calcaneus. No acute fracture or subluxa tion demonstrated. Ankle mortise: Symmetric. Talar Dome: Intact. Subtalar joint: Normal. Visualized hindfoot: Normal. Periarticular soft tissues: Normal. IMPRESSION: 1. No acute fracture or subluxation demonstrated.
== END 2019-12-01 12:30 | disposition home or self-care (01) ==
LOC: ERS 11:28
DX: M25.571 Pain in right ankle and joints of right foot (principal); I12.0 Hypertensive chronic kidney disease with stage 5 chronic kidney disease or end stage renal disease; N18.6 End stage renal disease; F32.9 Major depressive disorder, single episode, unspecified; F17.210 Nicotine dependence, cigarettes, uncomplicated; Z94.0 Kidney transplant status; W19.XXXA Unspecified fall, initial encounter
CPT/HCPCS: 29515

== ENCOUNTER 2019-12-11 23:53 | Emergency (ER) | payer MEDICARE, MEDICAID ==
[2019-12-12] MEDS ORDERED: Ondansetron ODT 4 MG TAB ONE (00:40)
[2019-12-12 01:12] LABS: Bacteria/HPF 3+ HPF (None Seen); Bilirubin Negative (Negative); Blood, Urine 1+ (Negative); Clarity Turbid (Clear); Glucose, Urine (Dipstick) Normal (Negative); Leukocyte 500 Leu/uL (Negative); Nitrite Negative (Negative); Protein, Urine (Dipstick) 30 mg/dL (Neg-Trace); Squamous Epithelial 0-3 HPF (0-3); Urobilinogen Normal mg/dL (Less than 2); WBC/HPF Greater than 50 HPF (0-3)
== END 2019-12-12 01:50 | disposition home or self-care (01) ==
LOC: ERS 23:53
DX: N39.0 Urinary tract infection, site not specified (principal); I12.0 Hypertensive chronic kidney disease with stage 5 chronic kidney disease or end stage renal disease; N18.6 End stage renal disease; F32.9 Major depressive disorder, single episode, unspecified; F17.210 Nicotine dependence, cigarettes, uncomplicated; Z79.82 Long term (current) use of aspirin; Z79.899 Other long term (current) drug therapy
CPT/HCPCS: 81003; 81015; 87804; Q0162

== ENCOUNTER 2019-12-12 12:33 | Inpatient (IN) | payer MEDICARE, MEDICAID ==
[2019-12-12] MEDS ORDERED: Cefepime 2 GM VIAL ONE (12:58)
[2019-12-12] MEDS ORDERED: Acetaminophen 500 MG TAB ONE (12:58)
[2019-12-12 13:04] LABS: #Eosinphils 0.1 thou/uL (0.0-0.7); #Lymphocytes 1.5 thou/uL (1.20-3.40); #Monocytes 0.8 thou/uL (0.11-0.59); #Neutrophils 12.4 thou/uL (1.40-6.50); %Basophils 0.2 % (0.0-1.0); %Eosinophils 0.4 % (0.0-10.0); %Lymphocytes 10.3 % (21.0-51.0); %Monocytes 5.6 % (0.0-10.0); %Neutrophils 83.6 % (42.0-75.0); Hemoglobin 13.6 g/dL (12.0-16.0); Mean Corpuscular HGB CONC 33.6 g/dL (32.0-36.0); Mean Corpuscular Hemoglobin 30.8 pg (27.0-31.0); Mean Corpuscular Volume 91.7 fL (78.0-98.0); Mean Platelet Volume 7.5 fL (7.4-10.4); Platelet Count 298 thou/uL (130-400); RBC Distribution Width 12.9 % (11.5-14.5); White Blood Cell (WBC) Count 14.8 thou/uL (4.8-10.8)
--- NOTE | 2019-12-12 13:20 | RAD ---
EXAM: CHEST ONE VIEW HISTORY: Fever, headache, UTI symptoms COMPARISON: 08/31/2018 FINDINGS: The cardiac silhouette and pulmonary vasculature is within normal limits. The lungs are clear. The os seous structures are intact. No interval change from prior study. IMPRESSION: No acute cardiopulmonary process.
[2019-12-12 13:35] LABS: ALT (SGPT) 24 U/L (8-55); AST (SGOT) 18 U/L (5-34); Albumin 4.3 g/dL (3.5-5.0); Alkaline Phosphatase 162 U/L (40-110); Anion Gap 13 mmol/L (10-20); BUN (Urea Nitrogen) 16 mg/dL (7.0-18.7); Bilirubin, Total 0.9 mg/dL (0.2-1.2); Calc. Creatinine Clearance 0 mL/min (70-130); Calcium 9.3 mg/dL (7.8-10.44); Carbon Dioxide 25 mmol/L (22-29); Chloride 96 mmol/L (98-107); Estimated GFR-MDRD 50; Globulin 3.7 g/dL (2.4-3.5); Glucose 152 mg/dL (70-105); Potassium 3.4 mmol/L (3.5-5.1); Sodium 131 mmol/L (136-145)
--- NOTE | 2019-12-12 13:38 | CT ---
ABDOMEN CT WITHOUT CONTRAST PELVIC CT WITHOUT CONTRAST: HISTORY: Abdominal pain, right-sided. COMPARISON: None. FINDINGS: Abdomen CT: Lung bases:4 mm solid nodule in the right lower lobe, incompletely evaluated. Heart size: Normal heart size. No significant pericardial fluid. Aorta: Normal caliber. No periaortic fat stranding. Atherosclerosis is noted. Solid organs: Limited evaluation by the lack of IV contrast. Grossly no solid organ abnormality. Hepa tic hypoattenuation due to hepatic steatosis. Lymph nodes: No gastrohepatic, retrocrural or periportal lymphadenopathy. Gallbladder: No acute abnormality. Mesentery: No mass, lymphadenopathy, free air or free fluid. Kidneys: Bilateral [place] kidneys are markedly diminutive. No evidence of associated obstructive urop athy. Transplanted left kidney in the right lower quadrant has appropriate attenuation and no evidence of significant dilatation. However, there is adjacent perinephric fat stranding. Alimentary canal: Limited evaluation by the lack of oral contrast. Unremarkable ileocecal junction. N ormal caliber appendix. Scattered fecal material in a nondistended, nondilated colon. CT PELVIS: No mass, adenopathy, free air or free fluid. Intrauterine device. Adnexal structures are unremarkabl e. Urinary bladder: Unremarkable. Osseous structures: No lytic or blastic lesions IMPRESSION: 1. Atrophic [place] kidneys. Bilaterally no obstructive uropathy, with respect to the [place] kidneys. 2. Transplanted kidney in the right lower quadrant with adjacent stranding of the fat. Correlate for possible allograft failure. No evidence of obstructive uropathy. Transcribed Date/Time: 12/12/2019 1:57 PM
[2019-12-12 14:25] LABS: Bilirubin Negative (Negative); Blood, Urine Trace (Negative); Clarity Turbid (Clear); Glucose, Urine (Dipstick) Normal (Negative); Leukocyte 250 Leu/uL (Negative); Nitrite Negative (Negative); Protein, Urine (Dipstick) 30 mg/dL (Neg-Trace); Squamous Epithelial 0-3 HPF (0-3); Urobilinogen Normal mg/dL (Less than 2)
[2019-12-12] MEDS ORDERED: traMADol HCl 50 MG TAB PO PRN ×2 (14:28)
[2019-12-12] MEDS ORDERED: Metoclopramide HCl 10 MG/2 ML VIAL IVP SCH ×2 (14:30→15:00)
[2019-12-12] MEDS ORDERED: diphenhydrAMINE 50 MG/ML VIAL IVP SCH ×2 (14:30→15:00)
[2019-12-12] MEDS ORDERED: Senokot S 8.6-50 MG TAB PO PRN (14:31)
[2019-12-12] MEDS ORDERED: HYDROcodone/Acetaminophen 5/325 mg Tablet PO PRN (14:31)
[2019-12-12] MEDS ORDERED: Ondansetron ODT 4 MG TAB PO PRN (14:31)
[2019-12-12] MEDS ORDERED: Guaifenesin DM 100-10/5 ML UDCUP PO PRN (14:31)
[2019-12-12] MEDS ORDERED: Acetaminophen 650 MG Suppository PR PRN (14:31)
[2019-12-12 14:34] LABS: Bacteria/HPF 2+ HPF (None Seen)
[2019-12-12] MEDS ORDERED: traMADol HCl 50 MG TAB PO SCH (15:00)
[2019-12-12] MEDS ORDERED: Dextrose 5% in Water 1,000 ML IV PRN (17:16)
[2019-12-12] MEDS ORDERED: HumaLOG 300 UNITS/3 ML VIAL SC PRN ×2 (17:16)
[2019-12-12] MEDS ORDERED: Dextrose 50% Abboject 50 ML SYRINGE SLOW IVP PRN (17:16)
--- NOTE | 2019-12-12 18:01 | HP ---
PRIMARY CARE PHYSICIAN: Dr. Scott at [facility]. CHIEF COMPLAINT: Headache and fevers. HISTORY OF PRESENT ILLNESS: This is a 44-year-old white female with a known history of previous kidney failure with a transplanted right kidney, on chronic immunosuppressants. The patient reports a 2-day history of headache and fevers. She gets migraine headaches, but typically only when she is significantly sick. Headache is diffusely all over head and is more of a pressure sensation. She did have some blurred vision with it at one point, but none now. She also had fevers, uncertain how high it got up to and chills and then started having some urinary urgency, but would just dribble when she tried to pee. She presented to the emergency room last night, was diagnosed with urinary tract infection, was given a prescription for antibiotics, but she never filled them, just went home and slept at home, got up and felt even worse, so she came back in. She did not have any antibiotics given last night though. She was seen in the emergency room today. She was diagnosed with sepsis. A CT scan of the abdomen did show some swelling around the right transplanted kidney concerning for rejection versus infection. Creatinine is actually not bad though. Her lactic acid was negative. She did have a leukocytosis. The patient was given vancomycin and cefepime in the emergency room as well as Tylenol for her fever, which had spiked up to 103 here. She is feeling significantly better now after fluids and antibiotics; however, her head is still hurting quite badly. REVIEW OF SYSTEMS: CONSTITUTIONAL: See HPI. EYES: See HPI. ENT: No congestion, drainage, or sore throat. CARDIOVASCULAR: No chest pain. No palpitations or racing heart. PULMONARY: No coughing, wheezing, or shortness of breath. GASTROINTESTINAL: The patient has not had any abdominal pain. No nausea or vomiting. No diarrhea or constipation. GENITOURINARY: See HPI. No dysuria or hematuria. MUSCULOSKELETAL: The patient had some right flank pain previously. It has gone now. No other muscle aches or joint pains. SKIN: No rashes or other lesions she has noted. NEUROLOGIC: No numbness, tingling, or focal weakness. PAST MEDICAL HISTORY: 1. Hypertension. 2. Dyslipidemia. 3. 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 4. Migraine headaches. 5. Depression. PAST SURGICAL HISTORY: 1. Right renal transplant in 2010. 2. Bilateral salpingo-oophorectomy in 2001. 3. Open reduction and fixation of left ankle fracture in 2004. 4. Percutaneous renal biopsy in 2001. 5. Multiple central line placements. 6. AV fistula in right arm in 2007. SOCIAL HISTORY: The patient smokes up to half pack of cigarettes daily, usually around two or three cigarettes. Rare alcohol use. She denies illicit drug use. She is , has multiple adult children. FAMILY HISTORY: Both parents with mild hypertension. ALLERGIES: NO KNOWN DRUG ALLERGIES. CURRENT MEDICATIONS: 1. Sertraline 100 mg daily. 2. Prograf 1 mg two times a day. 3. Prednisone 1 mg daily. 4. Protonix 40 mg daily. 5. Norvasc 2.5 mg daily. 6. Duloxetine 60 mg 2 tablets daily. 7. Aspirin 81 mg daily. 8. Pravastatin 10 mg daily. 9. Myfortic 360 mg two times a day. 10. Coreg 25 mg twice a day. 11. Metformin 500 mg twice a day. PHYSICAL EXAMINATION: VITAL SIGNS: Blood pressure 105/69, pulse 112, respirations 18, temperature 99.1, and O2 saturation 100% on room air. GENERAL: This is a well-developed obese white female, in moderate distress from headache. HEENT: Pupils equal, round, and reactive to light. Oropharynx is clear without lesions, erythema, or exudate. NECK: Supple. No lymphadenopathy. No thyroid nodules or enlargement. HEART: Regular rate and rhythm. No murmurs, rubs, or gallops. LUNGS: Clear to auscultation bilaterally. No wheezes, crackles, or rhonchi. ABDOMEN: Soft, nontender to palpation. Normoactive bowel sounds. No hepatosplenomegaly or other masses. EXTREMITIES: No clubbing, cyanosis, or edema. SKIN: No rashes or other lesions noted. NEUROLOGIC: The patient moves all extremities with equal strength. No facial droop. PSYCHIATRIC: Alert and oriented x3. Normal mood and affect. LABORATORY DATA: CBC with a white blood cell count of 14,000, 83% neutrophils. The rest was normal. Complete metabolic panel notable for sodium of 131, potassium 3.4, chloride 96, creatinine 1.16, glucose of 152, alkaline phosphatase of 162. The rest was normal. Lactic acid was negative, 1.0. Urinalysis showed elevated leukocyte esterase, 11 to 20 white blood cells, and 2+ bacteria; yesterday, it actually showed greater than 50 white blood cells and 3+ bacteria. IMAGING STUDIES: Chest x-ray; I did review the chest x-ray done in the emergency room along with the radiologist's report. It does show no acute cardiopulmonary process. CT of the abdomen and pelvis without contrast showed atrophic [place] kidneys bilaterally without obstructive uropathy. Does show a transplanted kidney in the right lower quadrant with adjacent stranding of the fat, concerning for possible allograft failure versus infection. ASSESSMENT: 1. Acute pyelonephritis of transplanted kidney. We will continue cefepime and vancomycin. We will get urine culture on the urine from last night. I did call the lab and they confirmed they still have the specimen. Blood cultures were already drawn in the emergency room here before giving antibiotics as well. We will continue vancomycin and cefepime. We will have the lab to dose the vancomycin. We will also give IV fluids and encourage p.o. fluids as well. 2. History of renal transplant. We will resume the patient's antirejection medications. We will also have Dr. Francisco see the patient and see if there is anything we need to adjust or do given her transplant status. 3. Hypertension. Resume the patient's home blood pressure medications. 4. Steroid-induced diabetes mellitus. We will monitor blood sugars and give sliding scale as needed. We will hold metformin for now. 5. Gastrointestinal prophylaxis, we will put the patient on Pepcid twice a day. 6. Deep venous thrombosis prophylaxis. We will put the patient on subcu Lovenox and SCDs while in bed. 7. Code status. I did discuss this with the patient. She is a full code. Should she be incapacitated, her oldest daughter will be her medical decision maker. Her name is Karla Howell. Job ID: [id number]
[2019-12-12 18:02] VITALS: BMI 33.3
[2019-12-12] MEDS: Sodium Chloride 0.9% 1,000 ML IV SCH (18:20)
[2019-12-12] MEDS: Acetaminophen 325 MG TAB PO PRN (18:22)
[2019-12-12] MEDS: Famotidine 20 MG TAB PO SCH (21:18)
[2019-12-12] MEDS: Cefepime 2 GM in Sodium Chloride 0.9% 100 ML IVPB SCH (21:19)
[2019-12-13] MEDS: Acetaminophen 325 MG TAB PO PRN (00:09)
[2019-12-13] MEDS ORDERED: Ibuprofen 200 MG TAB PO PRN (00:28)
[2019-12-13] MEDS: Vancomycin HCl 750 MG in Sodium Chloride 0.9% 250 ML 250 ML IVPB SCH ×2 (02:28→14:09)
[2019-12-13] MEDS: Sodium Chloride 0.9% 1,000 ML IV SCH ×3 (02:28→20:22)
[2019-12-13 05:47] LABS: #Lymphocytes 1.6 thou/uL (1.20-3.40); #Monocytes 0.9 thou/uL (0.11-0.59); #Neutrophils 14.2 thou/uL (1.40-6.50); %Basophils 0.1 % (0.0-1.0); %Eosinophils 0.1 % (0.0-10.0); %Lymphocytes 9.4 % (21.0-51.0); %Monocytes 5.6 % (0.0-10.0); %Neutrophils 84.8 % (42.0-75.0); Hemoglobin 11.6 g/dL (12.0-16.0); Mean Corpuscular HGB CONC 31.3 g/dL (32.0-36.0); Mean Corpuscular Hemoglobin 29.1 pg (27.0-31.0); Mean Corpuscular Volume 92.9 fL (78.0-98.0); Mean Platelet Volume 7.9 fL (7.4-10.4); Platelet Count 238 thou/uL (130-400); RBC Distribution Width 12.9 % (11.5-14.5); Red Blood Cell (RBC) Count 3.99 mill/uL (4.20-5.40); White Blood Cell (WBC) Count 16.7 thou/uL (4.8-10.8)
[2019-12-13 06:11] LABS: Anion Gap 15 mmol/L (10-20); BUN (Urea Nitrogen) 10 mg/dL (7.0-18.7); Calc. Creatinine Clearance 98 mL/min (70-130); Calcium 8.2 mg/dL (7.8-10.44); Carbon Dioxide 22 mmol/L (22-29); Chloride 104 mmol/L (98-107); Estimated GFR-MDRD 64; Glucose 185 mg/dL (70-105); Potassium 3.4 mmol/L (3.5-5.1); Sodium 138 mmol/L (136-145)
[2019-12-13] MEDS: HYDROcodone/Acetaminophen 5/325 mg Tablet PO PRN ×2 (07:25→20:13)
[2019-12-13] MEDS: Ondansetron PF 4 MG/2 ML Vial IVP PRN (07:34)
[2019-12-13] MEDS ORDERED: Potassium Chloride 20 MEQ TAB PO SCH (08:45)
--- NOTE | 2019-12-13 08:45 | PDOC.HOSPP ---
- Subjective Encounter Date: 12/13/19 Encounter Time: 12:00 Subjective: Patient with no further fever. Headache resolved after pain meds this AM. Urinating well. No abd/flank/back pain. Feeling much better. - Objective Vital Signs & Weight: Vital Signs (12 hours) Temp Pulse Resp BP Pulse Ox 12/13/19 07:10 98 12/13/19 05:16 98.0 F 111 H 21 H 121/88 98 12/13/19 01:00 99.3 F 12/13/19 00:09 101.8 F H 122 H 24 H 125/82 96 Weight Weight 182 lb 4.8 oz Result Diagrams: 12/13/19 05:27 12/13/19 05:27 Additional Labs: Accuchecks 12/13/19 12/12/19 05:10 20:11 POC Glucose 164 H 184 H Hospitalist ROS - Review of Systems Constitutional: denies: fever, chills Respiratory: denies: cough, shortness of breath Cardiovascular: denies: chest pain, palpitations, orthopnea Gastrointestinal: denies: nausea, vomiting, abdominal pain, diarrhea, constipation Genitourinary: denies: dysuria, hematuria - Medication Medications: Active Medications Generic Name Dose Route Start Last Admin Trade Name Freq PRN Reason Stop Dose Admin Acetaminophen 650 mg 12/12/19 14:31 12/13/19 00:09 Tylenol PO 650 mg Q4H PRN Administration Headache/Fever/Mild Pain (1-3) Hydrocodone Bitart/Acetaminophen 2 tab 12/12/19 14:31 12/13/19 07:25 [place] 5/325 PO 2 tab Q4H PRN Administration Severe Pain (7-10) Famotidine 20 mg 12/12/19 21:00 12/12/19 21:18 Pepcid PO 20 mg BID SU Administration Cefepime HCl 2 gm/ Sodium 100 mls @ 200 mls/hr 12/12/19 21:00 12/12/19 21:19 Chloride IVPB 100 mls Q12HR SU Administration Sodium Chloride 1,000 mls @ 100 mls/hr 12/12/19 14:31 12/13/19 02:28 Normal Saline 0.9% IV 1,000 mls .Q10H SU Administration Vancomycin HCl 750 mg/ Sodium 250 mls @ 250 mls/hr 12/13/19 02:00 12/13/19 02 :28 Chloride IVPB 250 mls 0200,1400 SU Administration Ondansetron HCl 4 mg 12/12/19 14:31 12/13/19 07:34 Zofran IVP 4 mg Q6H PRN Administration Nausea/Vomiting - Exam General Appearance: NAD, awake alert ENT: moist mucosa Heart: RRR, no murmur, no gallops, no rubs Respiratory: CTAB, no wheezes, no rales, no ronchi Gastrointestinal: soft, non-tender, non-distended, normal bowel sounds Psychiatric: normal affect, normal behavior, A&O x 3 Hosp A/P (1) Pyelonephritis of transplanted kidney Code(s): T86.19 - OTHER COMPLICATION OF KIDNEY TRANSPLANT; N12 - TUBULO- INTERSTITIAL NEPHRITIS, NOT SPCF ACUTE OR CHRONIC Status: Acute (2) Sepsis Code(s): A41.9 - SEPSIS, UNSPECIFIED ORGANISM Status: Acute (3) Hypertension Code(s): I10 - ESSENTIAL (PRIMARY) HYPERTENSION Status: Chronic (4) DM type 2 (diabetes mellitus, type 2) Status: Chronic (5) Dyslipidemia Code(s): E78.5 - HYPERLIPIDEMIA, UNSPECIFIED Status: Chronic (6) Depression Code(s): F32.9 - MAJOR DEPRESSIVE DISORDER, SINGLE EPISODE, UNSPECIFIED Status : Chronic - Plan Pyelonephritis- growing E. coli from urine, blood cultures negative on Cefepime and Vancomycin since 12/12/2019, adjust antibiotics based on culture results Acute renal failure of transplanted kidney- resolved, creatinine normalized, continue antirejection meds -Dr. Francisco consulted HTN- BP ok, resume carvedilol, hold amlodipine due to no elevations in BP at this time DM type 2- holding Metformin, monitor blood sugars- not running high so will d/ c accuchecks at patient request DVT prophy: SCDs in bed, Lovenox
[2019-12-13] MEDS ORDERED: MYCOPHENOLATE SODIUM 360 MG PO SCH (09:00)
[2019-12-13] MEDS ORDERED: Tacrolimus 1 MG CAP PO SCH (09:00)
[2019-12-13] MEDS: Enoxaparin Sodium 40 MG/0.4 ML SYRINGE SC SCH (09:42)
[2019-12-13] MEDS: Tacrolimus 1 MG CAP PO SCH ×2 (09:42→20:15)
[2019-12-13] MEDS: Famotidine 20 MG TAB PO SCH ×2 (09:42→20:12)
[2019-12-13] MEDS: Cefepime 2 GM in Sodium Chloride 0.9% 100 ML IVPB SCH ×2 (09:45→20:17)
--- NOTE | 2019-12-13 10:41 | CON ---
DATE OF CONSULTATION: HISTORY OF PRESENT ILLNESS: Ms. Rizvi is a 44-year-old female who was admitted for UTI/pyelonephritis. She has known history of renal transplantation and we were consulted for management of her renal transplantation. I did review her immunosuppressive regimen. I did restart it back this morning. This morning, she is feeling better. She has been empirically treated with IV antibiotics on vancomycin and cefepime. REVIEW OF SYSTEMS: Positive for fever. Positive for confusion. No nausea. No vomiting. Decreased appetite. Decreased energy level. ? of dysuria. No hematochezia. No melena. No hematemesis. Occasional back pain. Occasional myalgia. No headache. No diplopia. MEDICATIONS: The patient is currently on: 1. Acetaminophen q.4 p.r.n. 2. Cefepime 2 g IV q.12 hours. 3. Lovenox 40 mg subcu daily. 4. Famotidine 20 mg p.o. b.i.d. 5. Humalog sliding scale. 6. Hydrocodone p.r.n. 7. Normal saline at 100 mL an hour. 8. Vancomycin 750 mg IV q.12. Review of her home medication shows she is taking mycophenolate 360 mg tablet b.i.d. and tacrolimus 1 mg p.o. b.i.d. PAST MEDICAL HISTORY: 1. Status post renal transplantation. 2. Type 2 diabetes mellitus, hypertension, status post ESRD from a presumed diabetic nephropathy. PAST SURGICAL HISTORY: Status post cadaveric renal transplant, status post PD catheter placement with subsequent removal, status post AV fistula placement, and status post cuffed hemodialysis catheter placement. SOCIAL HISTORY: The patient is , several children. Currently, not working. Education, high school. She did smoke for the last several years less than 1 pack a day. Alcohol, rarely. No IV drug abuse. Status post blood transfusion. ALLERGIES: NO KNOWN DRUG ALLERGIES. TRAUMA: None. IMMUNIZATIONS: Up-to-date. HOSPITALIZATIONS: Please see past medical history. PHYSICAL EXAMINATION: VITAL SIGNS: Blood pressure 121/68, heart rate 111, respiratory rate 21, temperature 98 - T-max of 101.8, and pulse ox 98%. GENERAL: The patient is awake, alert, and comfortable, not in overt distress. SKIN: Adequate turgor. HEENT: She has pinkish conjunctivae. Anicteric sclerae. NECK: No neck mass. No carotid bruits. No JVD. CHEST: No deformities. LUNGS: Clear breath sounds. HEART: Normal sinus rhythm. No murmur. No gallops. No rubs. ABDOMEN: Globular, soft, and nontender. No masses. Renal allograft is nontender. EXTREMITIES: No edema. No deformities. LABORATORY DATA: Laboratories of December 13, 2019; white count 16.7, hemoglobin 11.6. Sodium 138, potassium 3.4, chloride 104, carbon dioxide 22, BUN 10, creatinine 0.94, glucose 185, and calcium 8.2. On December 12, 2019, creatinine 1.16. Urine C and S shows E coli. ASSESSMENT AND PLAN: 1. Urinary tract infection/pyelonephritis-on empiric IV antibiotics. Currently, on IV cefepime and IV vancomycin. 2. Status post renal transplant, stable renal function. Continue current immunosuppressive regimen. I did restart Prograf and mycophenolate with this patient. 3. Type 2 diabetes mellitus. Continue insulin regimen as needed. Overall agree with current management. Recheck basic metabolic and CBC in a.m. Job ID: [id number]
[2019-12-13] MEDS ORDERED: Mycophenolate ER 180 MG TAB PO SCH (16:30)
[2019-12-13] MEDS: Carvedilol 25 MG TAB PO SCH (20:13)
[2019-12-13] MEDS: Mycophenolate ER 180 MG TAB PO SCH (20:14)
[2019-12-13] MEDS ORDERED: Simvastatin 5 MG TAB PO SCH (21:00)
[2019-12-14 01:39] LABS: Vancomycin, Trough 8.9 ug/mL
[2019-12-14] MEDS: Vancomycin HCl 750 MG in Sodium Chloride 0.9% 250 ML 250 ML IVPB SCH (02:06)
[2019-12-14] MEDS ORDERED: Vancomycin HCl 500 MG in Sodium Chloride 0.9% 100 ML IVPB SCH (02:15)
[2019-12-14] MEDS: HYDROcodone/Acetaminophen 5/325 mg Tablet PO PRN ×3 (03:34→17:59)
[2019-12-14 05:18] LABS: #Eosinphils 0.1 thou/uL (0.0-0.7); #Lymphocytes 0.9 thou/uL (1.20-3.40); #Monocytes 0.6 thou/uL (0.11-0.59); #Neutrophils 8.1 thou/uL (1.40-6.50); %Basophils 0.1 % (0.0-1.0); %Eosinophils 0.7 % (0.0-10.0); %Lymphocytes 9.6 % (21.0-51.0); %Monocytes 6.2 % (0.0-10.0); %Neutrophils 83.4 % (42.0-75.0); Hemoglobin 10.5 g/dL (12.0-16.0); Mean Corpuscular HGB CONC 33.2 g/dL (32.0-36.0); Mean Corpuscular Hemoglobin 30.5 pg (27.0-31.0); Mean Corpuscular Volume 91.7 fL (78.0-98.0); Platelet Count 209 thou/uL (130-400); RBC Distribution Width 12.9 % (11.5-14.5); Red Blood Cell (RBC) Count 3.46 mill/uL (4.20-5.40); White Blood Cell (WBC) Count 9.8 thou/uL (4.8-10.8)
[2019-12-14 05:37] LABS: ALT (SGPT) 40 U/L (8-55); AST (SGOT) 23 U/L (5-34); Albumin 3.2 g/dL (3.5-5.0); Alkaline Phosphatase 119 U/L (40-110); Anion Gap 12 mmol/L (10-20); BUN (Urea Nitrogen) 9 mg/dL (7.0-18.7); Bilirubin, Total 0.3 mg/dL (0.2-1.2); Calc. Creatinine Clearance 118 mL/min (70-130); Calcium 8.1 mg/dL (7.8-10.44); Carbon Dioxide 21 mmol/L (22-29); Chloride 104 mmol/L (98-107); Estimated GFR-MDRD 80; Glucose 161 mg/dL (70-105); Potassium 3.5 mmol/L (3.5-5.1); Protein, Total 6.2 g/dL (6.0-8.3); Sodium 133 mmol/L (136-145)
[2019-12-14] MEDS: Famotidine 20 MG TAB PO SCH (08:20)
[2019-12-14] MEDS: Carvedilol 25 MG TAB PO SCH ×2 (08:20→20:56)
[2019-12-14] MEDS: Mycophenolate ER 180 MG TAB PO SCH ×2 (08:20→20:56)
[2019-12-14] MEDS: Tacrolimus 1 MG CAP PO SCH ×2 (08:20→20:57)
[2019-12-14] MEDS: Cefepime 2 GM in Sodium Chloride 0.9% 100 ML IVPB SCH ×2 (08:21→20:57)
[2019-12-14] MEDS: Enoxaparin Sodium 40 MG/0.4 ML SYRINGE SC SCH (08:22)
[2019-12-14] MEDS: Sodium Chloride 0.9% 1,000 ML IV SCH ×3 (08:33→17:35)
--- NOTE | 2019-12-14 10:20 | PRG ---
DATE OF SERVICE: 12/14/2019 SUBJECTIVE: Ms. Rizvi is a 44-year-old white female status post cadaveric renal transplant and admitted for fever. She was found to have a UTI and currently on IV antibiotics. We are following her up for her renal transplantation management. Yesterday, I restarted back the patient's immunosuppressive regimen. Tacrolimus level is pending. No other complaints today. She is feeling better. She is requesting to go back on her metformin. OBJECTIVE: VITAL SIGNS: Blood pressure is noted at 120/70 and heart rate 70. GENERAL: Noted to be awake, alert, and comfortable, not in distress. SKIN: Adequate turgor. HEENT: Pinkish conjunctivae. Anicteric sclerae. No neck mass. No carotid bruits. No JVD. CHEST: No deformities. LUNGS: Clear breath sounds. HEART: Normal sinus rhythm. No murmur. No gallops. No rubs. ABDOMEN: Globular, soft, and nontender. No masses. EXTREMITIES: No edema. No deformities. MEDICATIONS: Medications of December 14, 2019, was reviewed. LABORATORY DATA: Laboratories of December 14, 2019; white count 9.8, hemoglobin 10.5. Sodium 133, potassium 3.5, chloride 104, carbon dioxide 21, BUN 9, creatinine 0.78, and glucose 161. AST 23 and ALT 40. Tacrolimus level pending. Albumin 3.2. ASSESSMENT AND PLAN: 1. Fever, secondary to urinary tract infection, on empiric IV antibiotics. 2. Status post cadaveric renal transplant, stable, renal function is within normal. Continuing current immunosuppressive regimen, awaiting for results of her tacrolimus level. 3. Type 2 diabetes mellitus. Okay to resume back her metformin. 4. Borderline anemia. We will continue to observe. Recheck basic metabolic panel and CBC in a.m. Job ID: [id number]
--- NOTE | 2019-12-14 11:05 | PDOC.HOSPP ---
- Subjective Encounter Date: 12/14/19 Encounter Time: 11:00 Subjective: f/u for UTI/pyelonephritis on current Cefepime/Vancomycin. Afebrile over 24h. No new complaints. - Objective Vital Signs & Weight: Vital Signs (12 hours) Temp Pulse Resp BP Pulse Ox 12/14/19 08:00 97 12/14/19 07:37 98.0 F 95 16 94/59 L 97 12/14/19 04:43 98.3 F 99 18 116/76 96 12/13/19 23:55 97.8 F 91 18 110/75 98 Weight Weight 182 lb 4.8 oz I&O: 12/13/19 12/14/19 12/15/19 06:59 06:59 06:59 Intake Total 2186 Balance 2186 Result Diagrams: 12/14/19 04:57 12/14/19 04:57 Additional Labs: Microbiology 12/12/19 12:51 Venous blood - Left Hand Blood Culture - Preliminary Specimen has been received and culture in progress. No Growth to date. 12/12/19 12:51 Venous blood - Left Arm Blood Culture - Preliminary Specimen has been received and culture in progress. No Growth to date. 12/12/19 00:57 Urine clean catch Urine Culture - Preliminary Escherichia coli Laboratory Tests 12/12/19 12/13/19 12:51 05:27 Sodium 131 L 138 Potassium 3.4 L 3.4 L Creatinine 1.16 H 0.94 Hospitalist ROS - Medication Medications: Active Medications Generic Name Dose Route Start Last Admin Trade Name Freq PRN Reason Stop Dose Admin Acetaminophen 650 mg 12/12/19 14:31 12/13/19 00:09 Tylenol PO 650 mg Q4H PRN Administration Headache/Fever/Mild Pain (1-3) Hydrocodone Bitart/Acetaminophen 2 tab 12/12/19 14:31 12/14/19 03:34 [place] 5/325 PO 2 tab Q4H PRN Administration Severe Pain (7-10) Carvedilol 25 mg 12/13/19 21:00 12/14/19 08:20 Coreg PO 25 mg BID SU Administration Enoxaparin Sodium 40 mg 12/13/19 09:00 12/14/19 08:22 Lovenox SC Not Given 0900 [facility] Cefepime HCl 2 gm/ Sodium 100 mls @ 200 mls/hr 12/12/19 21:00 12/14/19 08:21 Chloride IVPB 100 mls Q12HR SU Administration Sodium Chloride 1,000 mls @ 100 mls/hr 12/12/19 14:31 12/14/19 08:33 Normal Saline 0.9% IV Not Given .Q10H SU Mycophenolate Sodium 360 mg 12/13/19 21:00 12/14/19 08:20 Myfortic PO 360 mg BID SU Administration Ondansetron HCl 4 mg 12/12/19 14:31 12/13/19 07:34 Zofran IVP 4 mg Q6H PRN Administration Nausea/Vomiting Sertraline HCl 100 mg 12/14/19 09:00 12/14/19 08:20 Zoloft PO 100 mg DAILY SU Administration Tacrolimus 1 mg 12/13/19 09:00 12/14/19 08:20 Prograf PO 1 mg BID SU Administration - Exam General Appearance: NAD, awake alert Eye: PERRL, anicteric sclera ENT: normocephalic atraumatic, no oropharyngeal lesions Neck: supple, symmetric, no JVD, no thyromegaly, no lymphadenopathy Heart: RRR, no murmur, no gallops, no rubs, normal peripheral pulses Respiratory: CTAB, no wheezes, no rales, no ronchi, normal chest expansion Gastrointestinal: soft, non-tender, non-distended, normal bowel sounds Extremities: no cyanosis, no clubbing, no edema Skin: normal turgor, no lesions Neurological: cranial nerve grossly intact, no new deficit Musculoskeletal: normal tone, normal strength, no muscle wasting Psychiatric: normal affect, A&O x 3 Hosp A/P (1) E. coli UTI Code(s): N39.0 - URINARY TRACT INFECTION, SITE NOT SPECIFIED; B96.20 - UNSP ESCHERICHIA COLI THE CAUSE OF DISEASES CLASSD ELSWHR Status: Acute Plan: Continue Cefepime another 24h then convert to po abx (2) LILLIAN (acute kidney injury) Code(s): N17.9 - ACUTE KIDNEY FAILURE, UNSPECIFIED Status: Acute Plan: Improved and resolving, continue supportive mgmt, avoid nephrotoxic meds and limit contrast (3) Sepsis Code(s): A41.9 - SEPSIS, UNSPECIFIED ORGANISM Status: Acute Plan: Sepsis due to UTI, resolving (4) DM type 2 (diabetes mellitus, type 2) Status: Chronic Plan: Stable, ISS, hold Metformin another 24h (5) Hypertension Code(s): I10 - ESSENTIAL (PRIMARY) HYPERTENSION Status: Chronic Qualifiers: Hypertension type: essential hypertension Qualified Code(s): I10 - Essential (primary) hypertension Plan: Resume home BP regimen - Plan continue antibiotics, social services counselor, out of bed/ambulate, DVT proph w/SCDs Stable currently Continue Cefepime another 24h D/C Vancomycin OOB/ambulate Tobacco cessation AM lab: BMP Home in 24h
[2019-12-14] MEDS: Ondansetron PF 4 MG/2 ML Vial IVP PRN ×2 (11:51→18:13)
[2019-12-14] MEDS ORDERED: Vancomycin HCl 1.25 GM in Sodium Chloride 0.9% 250 ML 250 ML IVPB SCH (14:00)
[2019-12-14 15:48] VITALS: TEMP 97.7
[2019-12-15] MEDS: Sodium Chloride 0.9% 1,000 ML IV SCH ×2 (01:45→12:39)
[2019-12-15 05:56] LABS: #Basophils 0.1 thou/uL (0.0-0.2); #Eosinphils 0.1 thou/uL (0.0-0.7); #Lymphocytes 1.6 thou/uL (1.20-3.40); #Monocytes 0.7 thou/uL (0.11-0.59); #Neutrophils 5.3 thou/uL (1.40-6.50); %Basophils 0.9 % (0.0-1.0); %Eosinophils 1.7 % (0.0-10.0); %Monocytes 9.3 % (0.0-10.0); Hemoglobin 10.5 g/dL (12.0-16.0); Mean Corpuscular HGB CONC 31.4 g/dL (32.0-36.0); Mean Corpuscular Hemoglobin 28.7 pg (27.0-31.0); Mean Corpuscular Volume 91.5 fL (78.0-98.0); Platelet Count 273 thou/uL (130-400); Red Blood Cell (RBC) Count 3.67 mill/uL (4.20-5.40); White Blood Cell (WBC) Count 7.7 thou/uL (4.8-10.8)
[2019-12-15 06:17] LABS: Anion Gap 13 mmol/L (10-20); BUN (Urea Nitrogen) 9 mg/dL (7.0-18.7); Calc. Creatinine Clearance 119 mL/min (70-130); Carbon Dioxide 24 mmol/L (22-29); Chloride 105 mmol/L (98-107); Estimated GFR-MDRD 81; Glucose 160 mg/dL (70-105); Potassium 3.6 mmol/L (3.5-5.1); Sodium 138 mmol/L (136-145)
[2019-12-15 07:40] VITALS: BP 135/94
[2019-12-15] MEDS ORDERED: predniSONE 5 MG TAB PO SCH (08:00)
[2019-12-15] MEDS ORDERED: metFORMIN 500 MG TAB PO SCH (08:00)
[2019-12-15] MEDS ORDERED: Simvastatin 5 MG TAB PO SCH (09:00)
[2019-12-15] MEDS ORDERED: DULoxetine 60 MG CAP PO SCH (09:00)
[2019-12-15] MEDS ORDERED: Aspirin 81 mg Enteric Coated Tablet PO SCH (09:00)
[2019-12-15] MEDS ORDERED: Amlodipine 10 MG TAB PO SCH (09:00)
[2019-12-15] MEDS: Carvedilol 25 MG TAB PO SCH (09:05)
[2019-12-15] MEDS: Tacrolimus 1 MG CAP PO SCH (09:05)
[2019-12-15] MEDS: Enoxaparin Sodium 40 MG/0.4 ML SYRINGE SC SCH (09:05)
[2019-12-15] MEDS: Mycophenolate ER 180 MG TAB PO SCH (09:06)
[2019-12-15] MEDS: Cefepime 2 GM in Sodium Chloride 0.9% 100 ML IVPB SCH (09:06)
[2019-12-15] MEDS: HYDROcodone/Acetaminophen 5/325 mg Tablet PO PRN (11:20)
[2019-12-15 21:07] LABS: Tacrolimus 1.6 ng/mL (2.0-20.0)
--- NOTE | 2019-12-16 02:24 | DIS ---
DATE OF ADMISSION: 12/12/2019 DATE OF DISCHARGE: 12/15/2019 DISCHARGE DIAGNOSES: 1. Escherichia coli urinary tract infection, improved. 2. Acute kidney injury, resolving. 3. Sepsis secondary to urinary tract infection, resolved. 4. Diabetes mellitus type 2, stable. 5. Hypertension stable. CONSULTATIONS: Dr. Francisco with Nephrology Service. PERTINENT LABORATORY AND X-RAY FINDINGS: Creatinine ranged between 0.77-1.16, estimated GFR ranged between 50 to 81. CBC showed a white blood cell count ranged between 7.7 to 16.7, hemoglobin ranged between 10.5 to 13.6. Urine culture dated 12/12/2019 showed greater than 100,000 colonies of E. coli sensitive to Macrobid. Blood cultures x2 dated 12/12/2019 showed no growth at 48 hours. Portable chest x-ray dated 12/12/2019 showed no acute cardiopulmonary process. CT of the abdomen and pelvis dated 12/12/2019 showed atrophic [place] kidneys bilaterally without obstruction. Transplanted kidney in the right lower quadrant with adjacent stranding of fat. HOSPITAL COURSE: The patient was admitted who initially presented with headache, fevers, and myalgias. The patient underwent general evaluation with sepsis criteria met in the emergency room. The patient was diagnosed with a urinary tract infection and initiated on IV antibiotic therapy. The patient initially placed on vancomycin and cefepime with urine culture confirming greater than 100,000 colonies of E. coli species. The patient continued on cefepime with eventual transition to Macrobid based on sensitivities. The patient overall clinically stabilized with IV antibiotic support and IV fluid hydration. I have examined the patient at time of discharge and discussed followup instructions. The patient verbalized understanding and agreement ready for discharge on 12/15/2019. DISCHARGE MEDICATIONS: 1. Norvasc 10 mg p.o. daily. 2. Aspirin 81 mg p.o. daily. 3. Cymbalta 120 mg p.o. daily. 4. Metformin 500 mg p.o. b.i.d. 5. Myfortic 360 mg p.o. b.i.d. 6. Protonix 40 mg p.o. daily. 7. Pravachol 20 mg p.o. daily. 8. Prednisone 2.5 mg p.o. daily. 9. Sertraline 100 mg p.o. daily. 10. Prograf 1 mg p.o. b.i.d. 11. Coreg 25 mg p.o. b.i.d. 12. Macrobid 100 mg p.o. b.i.d. x5 days. 13. Zofran 4 mg p.o. q.6 hours p.r.n. FOLLOWUP: Patient may follow up with her primary care provider, Taniya Mitchell within 7 days of discharge. CONDITION ON DISCHARGE: Stable. ACTIVITY: Ad-gamaliel. DIET: ADA. CODE STATUS: Full. DISPOSITION: To home 12/15/2019. TIME SPENT: Total time preparing and coordinating discharge 33 minutes. Job ID: [id number]
--- NOTE | 2019-12-17 15:32 | EKG ---
Test Reason : SEPIS Blood Pressure : / mmHG Vent. Rate : 123 BPM Atrial Rate : 123 BPM P-R Int : 130 ms QRS Dur : 074 ms QT Int : 320 ms P-R-T Axes : 057 -33 034 degrees QTc Int : 458 ms Poor data quality, interpretation may be adversely affected Sinus tachycardia Possible Left atrial enlargement Left axis deviation Nonspecific ST and T wave abnormality Abnormal ECG Confirmed by HUBERT ZEPEDA, WILD ([id number]), editor book ULISES AGUILAR ([id number]) on 12/17/2019 3:32:08 PM Referred By: Confirmed By:WIDL GASPAR MD
== END 2019-12-15 12:53 | disposition home or self-care (01) | DRG 698 ==
LOC: ERS 12:33 → ERHOLD 14:06 → T4-A 17:42
PROVIDERS: ADMIT Emergency Medicine; ATTEND Emergency Medicine
DX: T86.13 Kidney transplant infection (principal); A41.51 Sepsis due to Escherichia coli [E. coli]; N17.9 Acute kidney failure, unspecified; N10 Acute pyelonephritis; I12.9 Hypertensive chronic kidney disease with stage 1 through stage 4 chronic kidney disease, or unspecified chronic kidney disease; E11.22 Type 2 diabetes mellitus with diabetic chronic kidney disease; N18.9 Chronic kidney disease, unspecified; F17.210 Nicotine dependence, cigarettes, uncomplicated; E78.5 Hyperlipidemia, unspecified; Y83.8 Other surgical procedures as the cause of abnormal reaction of the patient, or of later complication, without mention of misadventure at the time of the procedure; T86.12 Kidney transplant failure; F32.9 Major depressive disorder, single episode, unspecified; Z98.51 Tubal ligation status
CPT/HCPCS: 36415; 36416; 71045; 74176; 80048; 80053; 80197; 80202; 81003; 81015; 83605; 85025; 87040; 87077; 87086; 87186; 87804; 93005; 99284; J0692; J1200; J1650; J2405; J2765; J3370; J3490; J7050; J7507; J7512; J7518; Q0162

== ENCOUNTER 2020-03-23 05:18 | Emergency (ER) | payer MEDICARE, MEDICAID ==
[2020-03-23 06:01] LABS: #Basophils 0.1 thou/uL (0.0-0.2); #Eosinphils 0.1 thou/uL (0.0-0.7); #Lymphocytes 3.1 thou/uL (1.20-3.40); #Monocytes 0.9 thou/uL (0.11-0.59); #Neutrophils 7.9 thou/uL (1.40-6.50); %Lymphocytes 25.3 % (21.0-51.0); %Monocytes 7.1 % (0.0-10.0); %Neutrophils 65.6 % (42.0-75.0); Hemoglobin 14.3 g/dL (12.0-16.0); Mean Corpuscular Hemoglobin 30.7 pg (27.0-31.0); Mean Corpuscular Volume 90.2 fL (78.0-98.0); Mean Platelet Volume 7.8 fL (7.4-10.4); Platelet Count 419 thou/uL (130-400); RBC Distribution Width 12.8 % (11.5-14.5); Red Blood Cell (RBC) Count 4.66 mill/uL (4.20-5.40); White Blood Cell (WBC) Count 12.1 thou/uL (4.8-10.8)
[2020-03-23 07:12] LABS: ALT (SGPT) 16 U/L (8-55); AST (SGOT) 18 U/L (5-34); Albumin 4.6 g/dL (3.5-5.0); Alkaline Phosphatase 172 U/L (40-110); Anion Gap 18 mmol/L (10-20); BUN (Urea Nitrogen) 15 mg/dL (7.0-18.7); Bilirubin, Total 0.4 mg/dL (0.2-1.2); Calc. Creatinine Clearance 0 mL/min (70-130); Calcium 9.9 mg/dL (7.8-10.44); Carbon Dioxide 20 mmol/L (22-29); Chloride 100 mmol/L (98-107); Estimated GFR-MDRD 52; Globulin 3.3 g/dL (2.4-3.5); Glucose 155 mg/dL (70-105); Potassium 3.7 mmol/L (3.5-5.1); Protein, Total 7.9 g/dL (6.0-8.3); Sodium 134 mmol/L (136-145)
--- NOTE | 2020-03-23 08:05 | RAD ---
PORTABLE CHEST: Date: 03/23/2020 PROVIDED CLINICAL HISTORY: Chest pain. FINDINGS: Comparison with 12/12/2019. Cardiac and mediastinal silhouette is within normal limits. Lungs appear clear. No pleural fluid or p neumothorax apparent. IMPRESSION: No evidence for an acute cardiopulmonary process. POS: SARABJIT
--- NOTE | 2020-03-23 14:39 | EKG ---
Test Reason : Blood Pressure : / mmHG Vent. Rate : 083 BPM Atrial Rate : 083 BPM P-R Int : 136 ms QRS Dur : 082 ms QT Int : 400 ms P-R-T Axes : 063 -35 022 degrees QTc Int : 470 ms Normal sinus rhythm Left axis deviation Minimal voltage criteria for LVH, may be normal variant T wave abnormality, consider anterior ischemia Prolonged QT Abnormal ECG No changes from NOV-2019 Reconfirmed by NATASHA VÁSQUEZ ([id number]), newspaper editor managing MARSHA VALDES ([id number]) on 03/23/2020 2:39:07 PM Referred By: Confirmed By:NATASHA VÁSQUEZ
== END 2020-03-23 07:00 | disposition home or self-care (01) ==
LOC: ERS 05:18
DX: R07.9 Chest pain, unspecified (principal); R11.0 Nausea; R42 Dizziness and giddiness; R06.02 Shortness of breath; I12.0 Hypertensive chronic kidney disease with stage 5 chronic kidney disease or end stage renal disease; N18.6 End stage renal disease; F32.9 Major depressive disorder, single episode, unspecified; F17.210 Nicotine dependence, cigarettes, uncomplicated; Z79.82 Long term (current) use of aspirin; Z79.899 Other long term (current) drug therapy
CPT/HCPCS: 36415; 71045; 80053; 84484; 85025; 93005

== ENCOUNTER 2020-07-04 12:50 | Emergency (ER) | payer MEDICARE, MEDICAID ==
[2020-07-04] MEDS ORDERED: Dexamethasone 10 MG/ML VIAL ONE (13:16)
[2020-07-04] MEDS ORDERED: Acetaminophen 325 MG TAB ONE (13:16)
== END 2020-07-04 13:46 | disposition home or self-care (01) ==
LOC: ERS 12:50
DX: J02.9 Acute pharyngitis, unspecified (principal); I12.0 Hypertensive chronic kidney disease with stage 5 chronic kidney disease or end stage renal disease; N18.6 End stage renal disease; F32.9 Major depressive disorder, single episode, unspecified; F17.210 Nicotine dependence, cigarettes, uncomplicated; Z79.899 Other long term (current) drug therapy
CPT/HCPCS: 87081; 87430; 99283; J1100

== ENCOUNTER 2021-01-15 11:18 | Emergency (ER) | payer MEDICARE, MEDICAID ==
--- NOTE | 2021-01-15 12:37 | RAD ---
Exam: Left shoulder 3 views: HISTORY: Pain COMPARISON: None FINDINGS: No evidence for fracture, dislocation, or other significant acute osseous abnormality. IMPRESSION: No significant acute process.
== END 2021-01-15 13:11 | disposition home or self-care (01) ==
LOC: ERS 11:18
DX: M25.512 Pain in left shoulder (principal); I12.0 Hypertensive chronic kidney disease with stage 5 chronic kidney disease or end stage renal disease; N18.6 End stage renal disease; E11.22 Type 2 diabetes mellitus with diabetic chronic kidney disease; F17.210 Nicotine dependence, cigarettes, uncomplicated; W00.0XXA Fall on same level due to ice and snow, initial encounter

== ENCOUNTER 2021-07-01 16:41 | Emergency (ER) | payer MEDICARE, MEDICAID | END 2021-07-01 19:29 | disposition left against medical advice (07) | LOC: ERS 16:41 | DX: R51.9 Headache, unspecified (principal) | CPT/HCPCS: 99283 ==

== ENCOUNTER 2021-07-12 19:37 | Emergency (ER) | payer MEDICARE, MEDICAID ==
[2021-07-12] MEDS ORDERED: Acetaminophen 325 MG TAB ONE (21:29)
== END 2021-07-12 21:38 | disposition home or self-care (01) ==
LOC: ERS 19:37
DX: S93.402A Sprain of unspecified ligament of left ankle, initial encounter (principal); I10 Essential (primary) hypertension; E11.9 Type 2 diabetes mellitus without complications; E78.5 Hyperlipidemia, unspecified; F17.210 Nicotine dependence, cigarettes, uncomplicated; X58.XXXA Exposure to other specified factors, initial encounter

== ENCOUNTER 2021-08-23 23:13 | Emergency (ER) | payer MEDICARE, MEDICAID ==
[2021-08-24 00:51] LABS: Bacteria/HPF Rare-Few HPF (None Seen); Bilirubin Negative (Negative); Blood, Urine Trace (Negative); Clarity Clear (Clear); Glucose, Urine (Dipstick) 500 mg/dL (Negative); Ketone, Urine Negative (Negative); Leukocyte 75 Leu/uL (Negative); Nitrite Negative (Negative); Protein, Urine (Dipstick) Negative (Neg-Trace); RBC/HPF 0-3 HPF (0-3); Specific Gravity, Urine 1.013 (1.002-1.036); Squamous Epithelial 0-3 HPF (0-3); Urobilinogen Normal mg/dL (Less than 2); WBC/HPF 0-3 HPF (0-3); pH, Urine 5.5 (5.0-9.0)
[2021-08-24 00:52] LABS: Pregnancy Test - Urine (BHCG) Negative (Negative); Pregu Control Background? CLEAR/WHITE (CLR/WHITE); Pregu Control Bar Appear? YES (CONTROL BAR); Specific Gravity 1.013 (1.002-1.036)
[2021-08-24] MEDS ORDERED: Acetaminophen 500 MG TAB ONE (01:56)
[2021-08-24] MEDS ORDERED: Metoclopramide HCl 10 MG/2 ML VIAL ONE (01:56)
[2021-08-24 02:23] LABS: #Basophils 0.1 thou/uL (0.0-0.2); #Eosinphils 0.3 thou/uL (0.0-0.7); #Lymphocytes 2.9 thou/uL (1.20-3.40); #Monocytes 0.5 thou/uL (0.11-0.59); #Neutrophils 7.3 thou/uL (1.40-6.50); %Basophils 0.5 % (0.0-1.0); %Eosinophils 2.6 % (0.0-10.0); %Lymphocytes 26.3 % (21.0-51.0); %Monocytes 4.9 % (0.0-10.0); %Neutrophils 65.7 % (42.0-75.0); Hemoglobin 13.2 g/dL (12.0-16.0); Mean Corpuscular HGB CONC 34.7 g/dL (32.0-36.0); Mean Corpuscular Volume 89.5 fL (78.0-98.0); Mean Platelet Volume 7.7 fL (7.4-10.4); Platelet Count 395 thou/uL (130-400); RBC Distribution Width 12.8 % (11.5-14.5); Red Blood Cell (RBC) Count 4.24 mill/uL (4.20-5.40); White Blood Cell (WBC) Count 11.2 thou/uL (4.8-10.8)
[2021-08-24 02:48] LABS: ALT (SGPT) 20 U/L (8-55); AST (SGOT) 15 U/L (5-34); Alkaline Phosphatase 216 U/L (40-110); Anion Gap 15 mmol/L (10-20); BUN (Urea Nitrogen) 27 mg/dL (7.0-18.7); Bilirubin, Total 0.2 mg/dL (0.2-1.2); Calc. Creatinine Clearance 0 mL/min (70-130); Calcium 9.8 mg/dL (7.8-10.44); Carbon Dioxide 25 mmol/L (22-29); Chloride 98 mmol/L (98-107); Globulin 3.7 g/dL (2.4-3.5); Glucose 210 mg/dL (70-105); Potassium 3.8 mmol/L (3.5-5.1); Protein, Total 7.7 g/dL (6.0-8.3); Sodium 134 mmol/L (136-145)
== END 2021-08-24 03:57 | disposition home or self-care (01) ==
LOC: ERS 23:13
DX: B34.9 Viral infection, unspecified (principal); I10 Essential (primary) hypertension; E11.9 Type 2 diabetes mellitus without complications; E78.5 Hyperlipidemia, unspecified; F17.210 Nicotine dependence, cigarettes, uncomplicated
CPT/HCPCS: 74176; 80053; 81003; 81015; 81025; 85025; 96374; J2765

== ENCOUNTER 2021-11-24 22:08 | Emergency (ER) | payer MEDICARE, MEDICAID ==
[2021-11-24 22:58] LABS: Bilirubin Negative (Negative); Blood, Urine Trace (Negative); Clarity Clear (Clear); Glucose, Urine (Dipstick) Normal (Negative); Ketone, Urine Negative (Negative); Leukocyte 250 Leu/uL (Negative); Nitrite Negative (Negative); Protein, Urine (Dipstick) 30 mg/dL (Neg-Trace); Squamous Epithelial 0-3 HPF (0-3); Urobilinogen Normal mg/dL (Less than 2); WBC/HPF 21-50 HPF (0-3)
[2021-11-24 23:00] LABS: Bacteria/HPF 1+ HPF (None Seen)
[2021-11-24 23:01] LABS: Pregnancy Test - Urine (BHCG) Negative (Negative); Pregu Control Background? CLEAR/WHITE (CLR/WHITE); Pregu Control Bar Appear? YES (CONTROL BAR)
[2021-11-24 23:25] LABS: #Basophils 0.1 thou/uL (0.0-0.2); #Eosinphils 0.3 thou/uL (0.0-0.7); #Lymphocytes 3.5 thou/uL (1.20-3.40); #Monocytes 0.6 thou/uL (0.11-0.59); #Neutrophils 8.6 thou/uL (1.40-6.50); %Basophils 0.5 % (0.0-1.0); %Lymphocytes 26.7 % (21.0-51.0); %Monocytes 4.9 % (0.0-10.0); Hemoglobin 11.9 g/dL (12.0-16.0); Mean Corpuscular HGB CONC 34.3 g/dL (32.0-36.0); Mean Corpuscular Hemoglobin 30.7 pg (27.0-31.0); Mean Corpuscular Volume 89.7 fL (78.0-98.0); Mean Platelet Volume 7.2 fL (7.4-10.4); Platelet Count 403 thou/uL (130-400); RBC Distribution Width 12.9 % (11.5-14.5); Red Blood Cell (RBC) Count 3.88 mill/uL (4.20-5.40)
[2021-11-24 23:41] LABS: ALT (SGPT) 14 U/L (8-55); AST (SGOT) 12 U/L (5-34); Albumin 4.1 g/dL (3.5-5.0); Alkaline Phosphatase 169 U/L (40-110); Anion Gap 13 mmol/L (10-20); BUN (Urea Nitrogen) 20 mg/dL (7.0-18.7); Bilirubin, Total 0.2 mg/dL (0.2-1.2); Calc. Creatinine Clearance 0 mL/min (70-130); Calcium 10.3 mg/dL (7.8-10.44); Carbon Dioxide 27 mmol/L (22-29); Chloride 102 mmol/L (98-107); Globulin 3.6 g/dL (2.4-3.5); Glucose 117 mg/dL (70-105); Potassium 3.5 mmol/L (3.5-5.1); Protein, Total 7.7 g/dL (6.0-8.3); Sodium 138 mmol/L (136-145)
[2021-11-24] MEDS ORDERED: Morphine 4 MG/ML VIAL ONE (23:48)
[2021-11-24] MEDS ORDERED: Ondansetron PF 4 MG/2 ML Vial ONE (23:48)
== END 2021-11-25 02:37 | disposition home or self-care (01) ==
LOC: ERS 22:08
DX: N30.00 Acute cystitis without hematuria (principal); R94.4 Abnormal results of kidney function studies; I10 Essential (primary) hypertension; E78.5 Hyperlipidemia, unspecified; E11.9 Type 2 diabetes mellitus without complications; F17.200 Nicotine dependence, unspecified, uncomplicated
CPT/HCPCS: 36415; 74176; 80053; 81003; 81015; 81025; 85025; J2270; J2405

== ENCOUNTER 2022-05-15 17:57 | Emergency (ER) | payer MEDICAID, MEDICARE ==
[2022-05-15] MEDS ORDERED: Ondansetron PF 4 MG/2 ML Vial ONE (18:14)
[2022-05-15 18:30] LABS: #Basophils 0.1 thou/uL (0.0-0.2); #Eosinphils 0.3 thou/uL (0.0-0.7); #Lymphocytes 3.5 thou/uL (1.20-3.40); #Monocytes 0.5 thou/uL (0.11-0.59); #Neutrophils 4.7 thou/uL (1.40-6.50); %Basophils 0.6 % (0.0-1.0); %Eosinophils 3.7 % (0.0-10.0); %Monocytes 5.5 % (0.0-10.0); %Neutrophils 52.2 % (42.0-75.0); Hemoglobin 11.7 g/dL (12.0-16.0); Mean Corpuscular HGB CONC 33.7 g/dL (32.0-36.0); Mean Corpuscular Hemoglobin 31.5 pg (27.0-31.0); Mean Corpuscular Volume 93.5 fL (78.0-98.0); Mean Platelet Volume 7.4 fL (7.4-10.4); Platelet Count 312 thou/uL (130-400); RBC Distribution Width 12.7 % (11.5-14.5); Red Blood Cell (RBC) Count 3.72 mill/uL (4.20-5.40); White Blood Cell (WBC) Count 9.1 thou/uL (4.8-10.8)
[2022-05-15 18:53] LABS: ALT (SGPT) 15 U/L (8-55); AST (SGOT) 13 U/L (5-34); Albumin 3.9 g/dL (3.5-5.0); Alkaline Phosphatase 150 U/L (40-110); Anion Gap 14 mmol/L (10-20); BUN (Urea Nitrogen) 29 mg/dL (7.0-18.7); Bilirubin, Total 0.2 mg/dL (0.2-1.2); Calc. Creatinine Clearance 0 mL/min (70-130); Calcium 9.4 mg/dL (7.8-10.44); Carbon Dioxide 21 mmol/L (22-29); Chloride 105 mmol/L (98-107); Globulin 3.5 g/dL (2.4-3.5); Glucose 166 mg/dL (70-105); Lipase 25 U/L (8-78); Potassium 4.3 mmol/L (3.5-5.1); Protein, Total 7.4 g/dL (6.0-8.3); Sodium 136 mmol/L (136-145)
[2022-05-15 19:18] LABS: Bacteria/HPF None Seen HPF (None Seen); Bilirubin Negative (Negative); Blood, Urine 3+ (Negative); Clarity Clear (Clear); Glucose, Urine (Dipstick) Normal (Negative); Ketone, Urine Negative (Negative); Leukocyte Negative Leu/uL (Negative); Nitrite Negative (Negative); Protein, Urine (Dipstick) Negative (Neg-Trace); RBC/HPF 0-3 HPF (0-3); Specific Gravity, Urine 1.017 (1.002-1.036); Squamous Epithelial 0-3 HPF (0-3); Urobilinogen Normal mg/dL (Less than 2); WBC/HPF 0-3 HPF (0-3)
== END 2022-05-15 19:05 | disposition home or self-care (01) ==
LOC: ERS 17:57
DX: R31.9 Hematuria, unspecified (principal); R79.89 Other specified abnormal findings of blood chemistry; I10 Essential (primary) hypertension; E11.9 Type 2 diabetes mellitus without complications; E78.5 Hyperlipidemia, unspecified; F17.210 Nicotine dependence, cigarettes, uncomplicated; Z79.899 Other long term (current) drug therapy; Z79.82 Long term (current) use of aspirin; Z79.84 Long term (current) use of oral hypoglycemic drugs
CPT/HCPCS: 36415; 80053; 81003; 81015; 83690; 85025; 96361; 96374; J2405

== ENCOUNTER 2022-12-31 11:21 | Emergency (ER) | payer MEDICAID, SELFPAY ==
[2022-12-31] MEDS ORDERED: Morphine 2 MG/ML VIAL ONE (11:40)
[2022-12-31] MEDS ORDERED: Ondansetron PF 4 MG/2 ML Vial ONE (11:40)
[2022-12-31 11:52] LABS: #Eosinphils 0.4 thou/uL (0.0-0.7); #Lymphocytes 2.8 thou/uL (1.20-3.40); #Monocytes 0.5 thou/uL (0.11-0.59); #Neutrophils 4.1 thou/uL (1.40-6.50); %Basophils 0.6 % (0.0-1.0); %Eosinophils 5.3 % (0.0-10.0); %Lymphocytes 35.7 % (21.0-51.0); %Monocytes 6.3 % (0.0-10.0); %Neutrophils 52.2 % (42.0-75.0); Hemoglobin 12.8 g/dL (12.0-16.0); Mean Corpuscular HGB CONC 33.2 g/dL (32.0-36.0); Mean Corpuscular Hemoglobin 30.1 pg (27.0-31.0); Mean Corpuscular Volume 90.7 fl (78.0-98.0); Mean Platelet Volume 7.7 fL (7.4-10.4); Platelet Count 347 10x3/uL (130-400); RBC Distribution Width 13.7 % (11.5-14.5); Red Blood Cell (RBC) Count 4.25 mill/uL (4.20-5.40); White Blood Cell (WBC) Count 7.9 10x3/uL (4.8-10.8)
[2022-12-31 12:35] LABS: ALT (SGPT) 13 U/L (8-55); AST (SGOT) 12 U/L (5-34); Alkaline Phosphatase 183 U/L (40-110); Anion Gap 15 mmol/L (10-20); BUN (Urea Nitrogen) 23 mg/dL (7.0-18.7); Bilirubin, Total Less than 0.2 mg/dL (0.2-1.2); Calc. Creatinine Clearance 0 mL/min (70-130); Calcium 9.7 mg/dL (7.8-10.44); Carbon Dioxide 22 mmol/L (22-29); Chloride 105 mmol/L (98-107); Estimated GFR 66; Glucose 166 mg/dL (70-105); Potassium 4.3 mmol/L (3.5-5.1); Sodium 138 mmol/L (136-145)
[2022-12-31] MEDS ORDERED: Morphine 4 MG/ML VIAL ONE (13:31)
[2022-12-31] MEDS ORDERED: Fentanyl 100 MCG/2 ML VIAL ONE (14:11)
[2022-12-31] MEDS ORDERED: HYDROmorphone 0.5 MG/0.5 ML SYRINGE ONE (15:34)
[2022-12-31] MEDS ORDERED: Amlodipine 5 MG TAB ONE (16:46)
== END 2022-12-31 17:20 | disposition home or self-care (01) ==
LOC: ERS 11:21
DX: I73.1 Thromboangiitis obliterans [Buerger's disease] (principal); E11.9 Type 2 diabetes mellitus without complications; E78.5 Hyperlipidemia, unspecified; F17.210 Nicotine dependence, cigarettes, uncomplicated; I10 Essential (primary) hypertension; Z79.82 Long term (current) use of aspirin; Z79.84 Long term (current) use of oral hypoglycemic drugs; Z79.899 Other long term (current) drug therapy
CPT/HCPCS: 80053; 85025; 93923; 96374; 96375; 96376; J1170; J2270; J2272; J2405; J3010

== ENCOUNTER 2023-02-18 18:11 | Inpatient (IN) | payer MEDICAID ==
[~2023-02-18 18:11] MED LIST: Iopamidol 370 76% 100 ML VIAL ONE
[2023-02-18] MEDS ORDERED: Acetaminophen 500 MG TAB ONE (18:37)
[2023-02-18 18:56] LABS: #Lymphocytes 1.1 thou/uL (1.20-3.40); #Monocytes 0.6 thou/uL (0.11-0.59); #Neutrophils 13.7 thou/uL (1.40-6.50); %Basophils 0.2 % (0.0-1.0); %Eosinophils 0.2 % (0.0-10.0); %Lymphocytes 7.3 % (21.0-51.0); %Monocytes 3.8 % (0.0-10.0); %Neutrophils 88.5 % (42.0-75.0); Hemoglobin 11.6 g/dL (12.0-16.0); Mean Corpuscular HGB CONC 33.9 g/dL (32.0-36.0); Mean Corpuscular Volume 88.6 fl (78.0-98.0); Mean Platelet Volume 7.8 fL (7.4-10.4); Platelet Count 265 10x3/uL (130-400); Red Blood Cell (RBC) Count 3.87 mill/uL (4.20-5.40); White Blood Cell (WBC) Count 15.5 10x3/uL (4.8-10.8)
[2023-02-18 19:17] LABS: ALT (SGPT) 15 U/L (8-55); AST (SGOT) 13 U/L (5-34); Alkaline Phosphatase 172 U/L (40-110); Anion Gap 12 mmol/L (10-20); BUN (Urea Nitrogen) 15 mg/dL (7.0-18.7); Bilirubin, Total 0.5 mg/dL (0.2-1.2); Calc. Creatinine Clearance 0 mL/min (70-130); Calcium 9.1 mg/dL (7.8-10.44); Carbon Dioxide 23 mmol/L (22-29); Chloride 99 mmol/L (98-107); Estimated GFR 63; Globulin 3.6 g/dL (2.4-3.5); Glucose 169 mg/dL (70-105); Potassium 3.8 mmol/L (3.5-5.1); Protein, Total 7.6 g/dL (6.0-8.3); Sodium 130 mmol/L (136-145)
[2023-02-18 19:48] LABS: SARS-CoV-2 NAA Rapid Test Not Detected (NotDetected)
[2023-02-18] MEDS ORDERED: cefTRIAXone (ROCEPHIN) 1 GM VIAL ONE (19:49)
[2023-02-18] MEDS ORDERED: Azithromycin 500 MG VIAL ONE (20:47)
[2023-02-18 21:38] VITALS: BMI 27.3
[2023-02-18] MEDS ORDERED: Mycophenolate DR 180 MG TAB PO SCH (22:15)
[2023-02-18] MEDS ORDERED: Tacrolimus 1 MG CAP PO SCH (22:15)
[2023-02-18] MEDS: Sodium Chloride 0.9% 1,000 ML IV SCH (22:18)
[2023-02-18 23:24] LABS: Bilirubin Negative (Negative); Blood, Urine Trace (Negative); Clarity Clear (Clear); Glucose, Urine (Dipstick) Normal (Negative); Ketone, Urine Negative (Negative); Leukocyte 500 Leu/uL (Negative); Nitrite Negative (Negative); Protein, Urine (Dipstick) Negative (Neg-Trace); RBC/HPF 0-3 HPF (0-3); Specific Gravity, Urine 1.013 (1.002-1.036); Squamous Epithelial 0-3 HPF (0-3); Urobilinogen Normal mg/dL (Less than 2); WBC/HPF 21-50 HPF (0-3); pH, Urine 6.5 (5.0-9.0)
[2023-02-18 23:27] LABS: Bacteria/HPF 1+ HPF (None Seen)
[2023-02-19] MEDS ORDERED: Acetaminophen 325 MG TAB ONE (00:03)
[2023-02-19] MEDS: Acetaminophen 325 MG TAB PO PRN ×2 (00:04→17:57)
[2023-02-19 04:05] LABS: #Basophils 0.1 thou/uL (0.0-0.2); #Lymphocytes 1.6 thou/uL (1.20-3.40); #Neutrophils 11.7 thou/uL (1.40-6.50); %Basophils 0.4 % (0.0-1.0); %Eosinophils 0.1 % (0.0-10.0); %Neutrophils 81.4 % (42.0-75.0); Hemoglobin 10.9 g/dL (12.0-16.0); Mean Corpuscular HGB CONC 34.7 g/dL (32.0-36.0); Mean Corpuscular Hemoglobin 31.2 pg (27.0-31.0); Mean Corpuscular Volume 89.8 fl (78.0-98.0); Mean Platelet Volume 7.5 fL (7.4-10.4); Platelet Count 233 10x3/uL (130-400); Red Blood Cell (RBC) Count 3.49 mill/uL (4.20-5.40); White Blood Cell (WBC) Count 14.4 10x3/uL (4.8-10.8)
[2023-02-19 04:27] LABS: ALT (SGPT) 22 U/L (8-55); AST (SGOT) 28 U/L (5-34); Albumin 3.4 g/dL (3.5-5.0); Alkaline Phosphatase 145 U/L (40-110); Anion Gap 11 mmol/L (10-20); BUN (Urea Nitrogen) 15 mg/dL (7.0-18.7); Bilirubin, Total 0.4 mg/dL (0.2-1.2); Calc. Creatinine Clearance 82 mL/min (70-130); Calcium 8.3 mg/dL (7.8-10.44); Carbon Dioxide 22 mmol/L (22-29); Chloride 105 mmol/L (98-107); Estimated GFR 64; Globulin 3.1 g/dL (2.4-3.5); Glucose 278 mg/dL (70-105); Potassium 3.7 mmol/L (3.5-5.1); Protein, Total 6.5 g/dL (6.0-8.3); Sodium 134 mmol/L (136-145)
[2023-02-19] MEDS ORDERED: Mycophenolate DR 180 MG TAB PO SCH (09:00)
[2023-02-19] MEDS ORDERED: Tacrolimus 1 MG CAP PO SCH (09:00)
[2023-02-19] MEDS: Sodium Chloride 0.9% 1,000 ML IV SCH ×2 (09:16→17:54)
[2023-02-19] MEDS: Carvedilol 25 MG TAB PO SCH ×2 (09:17→20:21)
[2023-02-19] MEDS: Tacrolimus 1 MG CAP PO SCH ×2 (09:17→20:22)
[2023-02-19] MEDS: Amlodipine 10 MG TAB PO SCH (09:18)
[2023-02-19] MEDS: Mycophenolate DR 180 MG TAB PO SCH ×2 (09:19→20:22)
[2023-02-19] MEDS ORDERED: HumaLOG 300 UNITS/3 ML VIAL SC PRN ×2 (10:00)
[2023-02-19] MEDS ORDERED: Dextrose 5% in Water 1,000 ML IV PRN (10:00)
[2023-02-19] MEDS ORDERED: Dextrose 50% Abboject 50 ML SYRINGE SLOW IVP PRN (10:00)
[2023-02-19] MEDS ORDERED: Ondansetron ODT 4 MG TAB PO PRN (10:01)
[2023-02-19] MEDS ORDERED: Ondansetron PF 4 MG/2 ML Vial IVP PRN (10:01)
[2023-02-19] MEDS: HYDROcodone/Acetaminophen 10/325 mg Tablet PO PRN ×2 (11:58→19:11)
[2023-02-19] MEDS ORDERED: FLU VACC QS2022-23(6MO UP)/PF 60 MCG/0.5 ML SYRINGE IM ONE (18:00)
[2023-02-19] MEDS: Simvastatin 10 MG TAB PO SCH (20:22)
[2023-02-19] MEDS: cefTRIAXone\\ROCEPHIN 2 GM in Sodium Chloride 0.9% 100 ML IVPB SCH (21:53)
[2023-02-19] MEDS: Azithromycin 500 MG in Sodium Chloride 0.9% 250 ML 250 ML IVPB SCH (22:51)
[2023-02-20] MEDS: HYDROcodone/Acetaminophen 10/325 mg Tablet PO PRN ×3 (02:32→15:42)
[2023-02-20] MEDS: Acetaminophen 325 MG TAB PO PRN (03:58)
[2023-02-20] MEDS: Sodium Chloride 0.9% 1,000 ML IV SCH ×3 (03:59→17:05)
[2023-02-20] MEDS ORDERED: Fioricet 325/50/40 mg Tablet PO PRN (04:01)
[2023-02-20] MEDS: DULoxetine 60 MG CAP PO SCH ×2 (08:31→08:37)
[2023-02-20] MEDS: Sertraline 100 MG TAB PO SCH (08:31)
[2023-02-20] MEDS: Famotidine 20 MG TAB PO SCH (08:32)
[2023-02-20] MEDS: Amlodipine 10 MG TAB PO SCH (08:32)
[2023-02-20] MEDS: Aspirin 81 mg Enteric Coated Tablet PO SCH (08:32)
[2023-02-20] MEDS: Carvedilol 25 MG TAB PO SCH ×2 (08:32→20:28)
[2023-02-20] MEDS: Tacrolimus 1 MG CAP PO SCH ×2 (08:33→20:28)
[2023-02-20] MEDS: Mycophenolate DR 180 MG TAB PO SCH ×2 (08:33→20:29)
[2023-02-20 08:45] LABS: Anion Gap 11 mmol/L (10-20); BUN (Urea Nitrogen) 11 mg/dL (7.0-18.7); Calc. Creatinine Clearance 108 mL/min (70-130); Calcium 8.8 mg/dL (7.8-10.44); Carbon Dioxide 22 mmol/L (22-29); Chloride 106 mmol/L (98-107); Estimated GFR 89; Glucose 172 mg/dL (70-105); Potassium 3.6 mmol/L (3.5-5.1); Sodium 135 mmol/L (136-145)
[2023-02-20] MEDS ORDERED: Pravastatin Sodium 20 MG TAB PO SCH (09:00)
[2023-02-20] MEDS ORDERED: Non-Formulary Item 1 EACH (Famotidine [Famotidine] 40 MG Tablet) PO SCH (09:00)
[2023-02-20 09:01] LABS: #Eosinphils 0.1 thou/uL (0.0-0.7); #Lymphocytes 1.5 thou/uL (1.20-3.40); #Monocytes 0.8 thou/uL (0.11-0.59); #Neutrophils 6.8 thou/uL (1.40-6.50); %Basophils 0.3 % (0.0-1.0); %Eosinophils 0.8 % (0.0-10.0); %Lymphocytes 16.5 % (21.0-51.0); %Monocytes 8.2 % (0.0-10.0); %Neutrophils 74.2 % (42.0-75.0); Hemoglobin 9.9 g/dL (12.0-16.0); Mean Corpuscular HGB CONC 32.7 g/dL (32.0-36.0); Mean Corpuscular Volume 91.6 fl (78.0-98.0); Mean Platelet Volume 8.1 fL (7.4-10.4); Platelet Count 211 10x3/uL (130-400); RBC Distribution Width 13.1 % (11.5-14.5); Red Blood Cell (RBC) Count 3.31 mill/uL (4.20-5.40); White Blood Cell (WBC) Count 9.1 10x3/uL (4.8-10.8)
[2023-02-20 20:10] LABS: Legionella Urinary Ag Negative (Negative); Strep pneumo Urine Ag NEGATIVE (NEGATIVE)
[2023-02-20] MEDS: Simvastatin 10 MG TAB PO SCH (20:28)
[2023-02-20] MEDS: cefTRIAXone\\ROCEPHIN 2 GM in Sodium Chloride 0.9% 100 ML IVPB SCH (21:10)
[2023-02-20] MEDS: Azithromycin 500 MG in Sodium Chloride 0.9% 250 ML 250 ML IVPB SCH (21:52)
[2023-02-21] MEDS: HYDROcodone/Acetaminophen 10/325 mg Tablet PO PRN ×4 (02:40→20:13)
[2023-02-21 07:17] LABS: #Eosinphils 0.2 thou/uL (0.0-0.7); #Lymphocytes 1.8 thou/uL (1.20-3.40); #Monocytes 0.7 thou/uL (0.11-0.59); #Neutrophils 8.7 thou/uL (1.40-6.50); %Basophils 0.1 % (0.0-1.0); %Eosinophils 1.7 % (0.0-10.0); %Monocytes 5.9 % (0.0-10.0); %Neutrophils 76.3 % (42.0-75.0); Hemoglobin 10.2 g/dL (12.0-16.0); Mean Corpuscular HGB CONC 34.9 g/dL (32.0-36.0); Mean Corpuscular Hemoglobin 31.1 pg (27.0-31.0); Mean Corpuscular Volume 89.3 fl (78.0-98.0); Mean Platelet Volume 8.3 fL (7.4-10.4); Platelet Count 214 10x3/uL (130-400); RBC Distribution Width 12.9 % (11.5-14.5); Red Blood Cell (RBC) Count 3.29 mill/uL (4.20-5.40); White Blood Cell (WBC) Count 11.4 10x3/uL (4.8-10.8)
[2023-02-21 07:34] LABS: Anion Gap 13 mmol/L (10-20); BUN (Urea Nitrogen) 10 mg/dL (7.0-18.7); Calc. Creatinine Clearance 106 mL/min (70-130); Calcium 9.3 mg/dL (7.8-10.44); Carbon Dioxide 24 mmol/L (22-29); Chloride 103 mmol/L (98-107); Estimated GFR 86; Glucose 180 mg/dL (70-105); Potassium 3.7 mmol/L (3.5-5.1); Sodium 136 mmol/L (136-145)
[2023-02-21] MEDS: Carvedilol 25 MG TAB PO SCH ×2 (07:48→20:03)
[2023-02-21] MEDS: Amlodipine 10 MG TAB PO SCH (07:48)
[2023-02-21] MEDS: DULoxetine 60 MG CAP PO SCH (07:48)
[2023-02-21] MEDS: Famotidine 20 MG TAB PO SCH (07:48)
[2023-02-21] MEDS: Aspirin 81 mg Enteric Coated Tablet PO SCH (07:48)
[2023-02-21] MEDS: Sertraline 100 MG TAB PO SCH (07:49)
[2023-02-21] MEDS: Tacrolimus 1 MG CAP PO SCH ×2 (09:34→20:03)
[2023-02-21] MEDS: Mycophenolate DR 180 MG TAB PO SCH ×2 (09:34→20:03)
[2023-02-21] MEDS: Simvastatin 10 MG TAB PO SCH (20:03)
[2023-02-21] MEDS: Azithromycin 500 MG in Sodium Chloride 0.9% 250 ML 250 ML IVPB SCH (21:48)
[2023-02-21] MEDS: cefTRIAXone\\ROCEPHIN 2 GM in Sodium Chloride 0.9% 100 ML IVPB SCH (22:52)
[2023-02-22 07:31] VITALS: TEMP 98.6
[2023-02-22 08:39] LABS: #Eosinphils 0.3 thou/uL (0.0-0.7); #Lymphocytes 1.7 thou/uL (1.20-3.40); #Monocytes 0.5 thou/uL (0.11-0.59); %Basophils 0.6 % (0.0-1.0); %Eosinophils 4.4 % (0.0-10.0); %Lymphocytes 26.2 % (21.0-51.0); %Monocytes 6.8 % (0.0-10.0); Hemoglobin 10.9 g/dL (12.0-16.0); Mean Corpuscular HGB CONC 33.3 g/dL (32.0-36.0); Mean Corpuscular Hemoglobin 30.1 pg (27.0-31.0); Mean Corpuscular Volume 90.5 fl (78.0-98.0); Mean Platelet Volume 7.9 fL (7.4-10.4); Platelet Count 336 10x3/uL (130-400); RBC Distribution Width 12.9 % (11.5-14.5); White Blood Cell (WBC) Count 6.5 10x3/uL (4.8-10.8)
[2023-02-22] MEDS: Sertraline 100 MG TAB PO SCH (08:58)
[2023-02-22] MEDS: Amlodipine 10 MG TAB PO SCH (08:59)
[2023-02-22] MEDS: Aspirin 81 mg Enteric Coated Tablet PO SCH (08:59)
[2023-02-22] MEDS: Famotidine 20 MG TAB PO SCH (08:59)
[2023-02-22] MEDS: Carvedilol 25 MG TAB PO SCH (08:59)
[2023-02-22] MEDS: DULoxetine 60 MG CAP PO SCH (08:59)
[2023-02-22] MEDS: Mycophenolate DR 180 MG TAB PO SCH (09:00)
[2023-02-22] MEDS: Tacrolimus 1 MG CAP PO SCH (09:00)
[2023-02-22] MEDS: HYDROcodone/Acetaminophen 10/325 mg Tablet PO PRN (09:14)
[2023-02-22 09:58] LABS: Anion Gap 14 mmol/L (10-20); BUN (Urea Nitrogen) 14 mg/dL (7.0-18.7); Calc. Creatinine Clearance 87 mL/min (70-130); Calcium 9.6 mg/dL (7.8-10.44); Carbon Dioxide 26 mmol/L (22-29); Chloride 102 mmol/L (98-107); Estimated GFR 68; Glucose 236 mg/dL (70-105); Potassium 4.2 mmol/L (3.5-5.1); Sodium 138 mmol/L (136-145)
[2023-02-22] MEDS ORDERED: Loratadine 10 MG TAB PO SCH (11:00)
[2023-02-22] MEDS ORDERED: Fluticasone Propionate Nasal Spray 16 gm Bottle NASAL SCH ×2 (11:00→21:00)
[2023-02-22 11:32] VITALS: BP 111/74
[2023-02-24 21:13] LABS: Mycoplasma pneumoniae IgG AB 114 U/mL (0-99); Mycoplasma pneumoniae IgM AB Less than 770 U/mL (0-769)
== END 2023-02-22 14:04 | disposition home or self-care (01) | DRG 871 ==
LOC: ERS 18:11 → ERHOLD 20:16 → T4-A 02-19 08:21
PROVIDERS: ADMIT Family Medicine; ATTEND Family Medicine
DX: A41.51 Sepsis due to Escherichia coli [E. coli] (principal); J15.6 Pneumonia due to other Gram-negative bacteria; E87.1 Hypo-osmolality and hyponatremia; Z94.0 Kidney transplant status; D84.821 Immunodeficiency due to drugs; N39.0 Urinary tract infection, site not specified; Z20.822 Contact with and (suspected) exposure to COVID-19; E11.9 Type 2 diabetes mellitus without complications; E78.5 Hyperlipidemia, unspecified; I10 Essential (primary) hypertension; R91.8 Other nonspecific abnormal finding of lung field; F17.210 Nicotine dependence, cigarettes, uncomplicated; Z28.21 Immunization not carried out because of patient refusal; Z79.899 Other long term (current) drug therapy; Z79.84 Long term (current) use of oral hypoglycemic drugs; Z79.52 Long term (current) use of systemic steroids; Z98.890 Other specified postprocedural states
CPT/HCPCS: 36415; 36416; 71045; 71275; 80048; 80053; 81003; 81015; 83605; 83880; 84145; 84484; 85025; 86480; 87040; 87077; 87086; 87149; 87186; 87449; 87899; 93005; 94760; 96365; 96367; J0456; J0696; J1650; J3490; J7050; J7507; J7518; Q9967

== ENCOUNTER 2023-07-09 19:00 | Emergency (ER) | payer SELFPAY ==
[2023-07-09] MEDS ORDERED: Diazepam 5 MG TAB ONE (22:18)
[2023-07-09] MEDS ORDERED: predniSONE 20 MG TAB ONE (22:18)
[2023-07-09 22:48] LABS: #Eosinphils 0.2 thou/uL (0.0-0.7); #Monocytes 0.6 thou/uL (0.11-0.59); #Neutrophils 6.5 thou/uL (1.40-6.50); %Basophils 0.3 % (0.0-1.0); %Eosinophils 2.4 % (0.0-10.0); %Lymphocytes 27.2 % (21.0-51.0); %Neutrophils 63.8 % (42.0-75.0); Hematocrit 34.3 % (36.0-47.0); Hemoglobin 11.2 g/dL (12.0-16.0); Mean Corpuscular HGB CONC 32.7 g/dL (32.0-36.0); Mean Corpuscular Hemoglobin 29.1 pg (27.0-31.0); Mean Corpuscular Volume 89.1 fl (78.0-98.0); Platelet Count 320 10x3/uL (130-400); RBC Distribution Width 13.8 % (11.5-14.5); Red Blood Cell (RBC) Count 3.85 mill/uL (4.20-5.40); White Blood Cell (WBC) Count 10.2 10x3/uL (4.8-10.8)
[2023-07-09 23:11] LABS: ALT (SGPT) 12 U/L (8-55); AST (SGOT) 11 U/L (5-34); Albumin 3.9 g/dL (3.5-5.0); Alkaline Phosphatase 184 U/L (40-110); Anion Gap 12 mmol/L (10-20); BUN (Urea Nitrogen) 20 mg/dL (7.0-18.7); Bilirubin, Total 0.2 mg/dL (0.2-1.2); Calc. Creatinine Clearance 0 mL/min (70-130); Calcium 9.5 mg/dL (7.8-10.44); Carbon Dioxide 22 mmol/L (22-29); Chloride 106 mmol/L (98-107); Estimated GFR 67; Globulin 3.5 g/dL (2.4-3.5); Glucose 138 mg/dL (70-105); Potassium 3.9 mmol/L (3.5-5.1); Protein, Total 7.4 g/dL (6.0-8.3); Sodium 136 mmol/L (136-145)
== END 2023-07-10 00:23 | disposition home or self-care (01) ==
LOC: ERS 19:00
DX: M54.32 Sciatica, left side (principal); I10 Essential (primary) hypertension; E11.9 Type 2 diabetes mellitus without complications; E78.5 Hyperlipidemia, unspecified; F17.210 Nicotine dependence, cigarettes, uncomplicated
CPT/HCPCS: 36415; 80053; 85025; 99283; J7512

== ENCOUNTER 2023-07-16 15:09 | Emergency (ER) | payer OTHER, SELFPAY ==
[~2023-07-16 15:09] MED LIST changes: -Iopamidol 370 76% 100 ML VIAL ONE; +Iopamidol-370 76% 500 ML MDV (1 ML CHARGE) ONE
[2023-07-16 16:12] LABS: #Eosinphils 0.4 thou/uL (0.0-0.7); #Monocytes 0.6 thou/uL (0.11-0.59); #Neutrophils 6.9 thou/uL (1.40-6.50); %Basophils 0.4 % (0.0-1.0); %Eosinophils 3.4 % (0.0-10.0); %Lymphocytes 23.6 % (21.0-51.0); %Monocytes 5.4 % (0.0-10.0); %Neutrophils 66.7 % (42.0-75.0); Hematocrit 35.3 % (36.0-47.0); Hemoglobin 11.8 g/dL (12.0-16.0); Mean Corpuscular HGB CONC 33.4 g/dL (32.0-36.0); Mean Corpuscular Hemoglobin 28.9 pg (27.0-31.0); Mean Corpuscular Volume 86.3 fl (78.0-98.0); Mean Platelet Volume 10.2 fL (7.4-10.4); Platelet Count 352 10x3/uL (130-400); RBC Distribution Width 13.9 % (11.5-14.5); Red Blood Cell (RBC) Count 4.09 mill/uL (4.20-5.40); White Blood Cell (WBC) Count 10.4 10x3/uL (4.8-10.8)
[2023-07-16 16:24] LABS: BHCG - Serum Negative (NEGATIVE); Pregs Control Background? CLEAR/WHITE (CLR/WHITE); Pregs Control Bar Appear? YES (CONTROL BAR)
[2023-07-16 17:15] LABS: ALT (SGPT) 12 U/L (8-55); AST (SGOT) 13 U/L (5-34); Alkaline Phosphatase 217 U/L (40-110); Anion Gap 16 mmol/L (10-20); BUN (Urea Nitrogen) 26 mg/dL (7.0-18.7); Bilirubin, Total 0.2 mg/dL (0.2-1.2); Calc. Creatinine Clearance 0 mL/min (70-130); Calcium 9.8 mg/dL (7.8-10.44); Carbon Dioxide 23 mmol/L (22-29); Chloride 101 mmol/L (98-107); Estimated GFR 40; Globulin 3.7 g/dL (2.4-3.5); Glucose 219 mg/dL (70-105); Lipase 29 U/L (8-78); Potassium 3.7 mmol/L (3.5-5.1); Protein, Total 7.7 g/dL (6.0-8.3); Sodium 136 mmol/L (136-145)
[2023-07-16 17:22] LABS: Bacteria/HPF None Seen HPF (None Seen); Bilirubin Negative (Negative); Blood, Urine Negative (Negative); CAUTI Indications for Culture Pelvic or flank pain; Clarity Clear (Clear); Glucose, Urine (Dipstick) 30 mg/dL (Negative); Ketone, Urine Negative (Negative); Leukocyte Negative Leu/uL (Negative); Nitrite Negative (Negative); Protein, Urine (Dipstick) 10 mg/dL (Neg-Trace); RBC/HPF 0-3 HPF (0-3); Specific Gravity, Urine 1.024 (1.002-1.036); Squamous Epithelial 0-3 HPF (0-3); Urobilinogen Normal mg/dL (Less than 2); WBC/HPF 0-3 HPF (0-3)
[2023-07-16 17:25] LABS: Pregnancy Test - Urine (BHCG) Negative (Negative); Pregu Control Background? CLEAR/WHITE (CLR/WHITE); Pregu Control Bar Appear? YES (CONTROL BAR); Specific Gravity 1.024 (1.002-1.036); Urine Culture Reflex No No
[2023-07-16] MEDS ORDERED: Acetaminophen 500 MG TAB ONE (17:45)
== END 2023-07-16 18:53 ==
LOC: ERS 15:09
DX: N17.9 Acute kidney failure, unspecified (principal); I10 Essential (primary) hypertension; E11.9 Type 2 diabetes mellitus without complications; E78.00 Pure hypercholesterolemia, unspecified; F17.210 Nicotine dependence, cigarettes, uncomplicated; Z99.2 Dependence on renal dialysis; Z79.82 Long term (current) use of aspirin; Z79.899 Other long term (current) drug therapy
CPT/HCPCS: 36415; 71045; 74177; 80053; 81001; 81025; 83690; 84703; 85025; 96360; Q9967

== ENCOUNTER 2023-09-18 14:05 | Emergency (ER) | payer OTHER, SELFPAY ==
[2023-09-18] MEDS ORDERED: HYDROcodone/Acetaminophen 5/325 mg Tablet ONE ×2 (15:33→15:35)
== END 2023-09-18 17:01 | disposition home or self-care (01) ==
LOC: ERS 14:05
DX: S00.31XA Abrasion of nose, initial encounter (principal); M25.512 Pain in left shoulder; I12.0 Hypertensive chronic kidney disease with stage 5 chronic kidney disease or end stage renal disease; E11.22 Type 2 diabetes mellitus with diabetic chronic kidney disease; N18.6 End stage renal disease; F17.210 Nicotine dependence, cigarettes, uncomplicated; E78.00 Pure hypercholesterolemia, unspecified; V28.09XA Other motorcycle driver injured in noncollision transport accident in nontraffic accident, initial encounter; Y93.55 Activity, bike riding; Z79.82 Long term (current) use of aspirin; Z79.899 Other long term (current) drug therapy
CPT/HCPCS: 70450; 70486; 72125

== ENCOUNTER 2023-11-26 06:34 | Emergency (ER) | payer SELFPAY | END 2023-11-26 07:24 | disposition home or self-care (01) | LOC: ERS 06:34 | DX: M79.641 Pain in right hand (principal); I10 Essential (primary) hypertension; E11.9 Type 2 diabetes mellitus without complications; E78.00 Pure hypercholesterolemia, unspecified; F17.210 Nicotine dependence, cigarettes, uncomplicated ==

== ENCOUNTER 2023-12-16 12:09 | Emergency (ER) | payer SELFPAY ==
[2023-12-16 12:35] LABS: #Eosinphils 0.1 thou/uL (0.0-0.7); #Monocytes 0.5 thou/uL (0.11-0.59); #Neutrophils 4.2 thou/uL (1.40-6.50); %Basophils 0.2 % (0.0-1.0); %Eosinophils 1.3 % (0.0-10.0); %Lymphocytes 19.7 % (21.0-51.0); %Monocytes 8.9 % (0.0-10.0); %Neutrophils 69.6 % (42.0-75.0); Hematocrit 38.7 % (36.0-47.0); Hemoglobin 12.8 g/dL (12.0-16.0); Mean Corpuscular HGB CONC 33.1 g/dL (32.0-36.0); Mean Corpuscular Hemoglobin 29.4 pg (27.0-31.0); Mean Corpuscular Volume 88.8 fl (78.0-98.0); Platelet Count 306 10x3/uL (130-400); RBC Distribution Width 14.5 % (11.5-14.5); Red Blood Cell (RBC) Count 4.36 mill/uL (4.20-5.40); White Blood Cell (WBC) Count 6.1 10x3/uL (4.8-10.8)
[2023-12-16 12:48] LABS: BHCG - Serum Negative (NEGATIVE); Pregs Control Background? CLEAR/WHITE (CLR/WHITE); Pregs Control Bar Appear? YES (CONTROL BAR)
[2023-12-16 13:01] LABS: ALT (SGPT) 15 U/L (8-55); AST (SGOT) 18 U/L (5-34); Alkaline Phosphatase 130 U/L (40-110); Anion Gap 13 mmol/L (10-20); BUN (Urea Nitrogen) 19 mg/dL (7.0-18.7); Bilirubin, Total 0.3 mg/dL (0.2-1.2); Calc. Creatinine Clearance 0 mL/min (70-130); Carbon Dioxide 17 mmol/L (22-29); Chloride 109 mmol/L (98-107); Estimated GFR 51; Globulin 3.6 g/dL (2.4-3.5); Glucose 142 mg/dL (70-105); Lipase 13 U/L (8-78); Potassium 3.6 mmol/L (3.5-5.1); Protein, Total 7.6 g/dL (6.0-8.3); Sodium 135 mmol/L (136-145)
[2023-12-16 13:06] LABS: Troponin I Less than 0.010 ng/mL (< 0.028)
[2023-12-16] MEDS ORDERED: Iopamidol-370 76% 500 ML MDV (1 ML CHARGE) ONE (13:33)
[2023-12-16] MEDS ORDERED: Ondansetron PF 4 MG/2 ML Vial ONE (14:00)
[2023-12-16] MEDS ORDERED: Famotidine/PF 20 mg/2ml Vial ONE (14:01)
[2023-12-16 16:18] LABS: Bacteria/HPF None Seen HPF (None Seen); Bilirubin Negative (Negative); Blood, Urine Trace (Negative); CAUTI Indications for Culture Pelvic or flank pain; Clarity Clear (Clear); Glucose, Urine (Dipstick) Normal (Negative); Ketone, Urine Negative (Negative); Leukocyte Negative Leu/uL (Negative); Nitrite Negative (Negative); Protein, Urine (Dipstick) Negative (Neg-Trace); RBC/HPF 0-3 HPF (0-3); Specific Gravity, Urine 1.038 (1.002-1.036); Squamous Epithelial 0-3 HPF (0-3); Urobilinogen Normal mg/dL (Less than 2); WBC/HPF 0-3 HPF (0-3); pH, Urine 5.5 (5.0-9.0)
[2023-12-16 16:21] LABS: Urine Culture Reflex No No
== END 2023-12-16 17:38 | disposition home or self-care (01) ==
LOC: ERS 12:09
DX: R19.7 Diarrhea, unspecified (principal); R50.9 Fever, unspecified; R52 Pain, unspecified; I12.0 Hypertensive chronic kidney disease with stage 5 chronic kidney disease or end stage renal disease; E11.22 Type 2 diabetes mellitus with diabetic chronic kidney disease; N18.6 End stage renal disease; F17.210 Nicotine dependence, cigarettes, uncomplicated
CPT/HCPCS: 36415; 71045; 74177; 80053; 81001; 83690; 84484; 84703; 85025; 93005; 96361; 96374; 96375; J2405; Q9967; S0028